=== PATIENT | female | born 1985 | race Caucasian/White ===

== ENCOUNTER 2018-05-13 06:48 | Day surgery (SDC) | payer MEDICAID ==
[~2018-05-13 06:48] MED LIST: Lactated Ringers 1,000 ML IV SCH; Lidocaine 1%/Sod Bicarbonate in NS 8.4% 1 ML Syringe IDERM PRN; Sodium Chloride 0.9% 10 ML Syringe FLUSH PRN
[2018-05-13] MEDS ORDERED: Bupivacaine 0.5% 30 ML SDV ONE (07:15)
--- NOTE | 2018-05-13 07:15 | PCM.PREANE ---
Preanesthetic Assessment - Anesthesia/Transfusion/Family Hx Anesthesia History: Prior Anesthesia Without Reaction Family History of Anesthesia Reaction: No Transfusion History: No Prior Transfusion(s) - Review of Systems General: No Symptoms Pulmonary: No Symptoms Cardiovascular: No Symptoms Gastrointestinal: Abdominal Pain (5) Neurological: No Symptoms Other: Reports: None - Physical Assessment NPO Status Date: 05/12/18 NPO Status Time: 23:10 Pulse: 65 O2 Sat by Pulse Oximetry: 98 Respiratory Rate: 16 Blood Pressure: 122/80 Temperature: 36.3 C Vital Signs: Last Vital Signs Temp 36.3 C 05/13/18 06:55 Pulse 65 05/13/18 06:55 Resp 16 05/13/18 06:55 BP 122/80 05/13/18 06:55 Pulse Ox 98 05/13/18 06:55 Height: 1.7 m Weight: 78.018 kg ASA Class: 2 Mental Status: Alert & Oriented x3 Airway Class: Mallampati = 1 Dentition: Reports: Normal Dentition, Broken Tooth/Teeth (front bottom) Thyro-Mental Finger Breadths: 3 Mouth Opening Finger Breadths: 3 ROM/Head Extension: Full Lungs: Clear to Auscultation, Normal Respiratory Effort Cardiovascular: Regular Rate, Regular Rhythm - Lab Values: Laboratory Last Values Urine HCG, Qual Negative (NEGATIVE) 05/13/18 06:55 - Allergies Allergies/Adverse Reactions: Allergies Allergy/AdvReac Type Severity Reaction Status Date / Time carrot Allergy Anaphylactic Verified 05/12/18 14:24 Shock docusate [From Colace] Allergy Hives Verified 05/12/18 14:24 metronidazole [From Flagyl] Allergy Airway Verified 05/12/18 14:24 Tightness walnut Allergy Anaphylactic Verified 05/12/18 14:24 Shock - Anesthesia Plan Pre-Op Medication Ordered: None - Acknowledgements Anesthesia Type Planned: General Anesthesia Pt an Appropriate Candidate for the Planned Anesthesia: Yes Alternatives and Risks of Anesthesia Discussed w Pt/Guardian: Yes Pt/Guardian Understands and Agrees with Anesthesia Plan: Yes PreAnesthesia Questionnaire HEENT History: Reports: Other (See Below) Other HEENT History: wears dentures Cardiovascular History: Reports: None Respiratory History: Reports: None Gastrointestinal History: Reports: Other (See Below) Other Gastrointestinal History: nausea Genitourinary History: Reports: Renal Calculus, Other (See Below) Other Genitourinary History: RLQ pain, Left oophorectomy, ovarian cyst, uterine fibroid, pelvic pain, dyspareunia RISK TECH History: Reports: None Musculoskeletal History: Reports: Other (See Below) Other Musculoskeletal History: foot pain, swelling Neurological History: Reports: None Psychiatric History: Reports: None Endocrine/Metabolic History: Reports: None Hematologic History: Reports: None Immunologic History: Reports: None Oncologic (Cancer) History: Reports: None Dermatologic History: Reports: None - Past Surgical History Head Surgeries/Procedures: Reports: None HEENT Surgical History: Reports: Oral Surgery, Tonsillectomy Cardiovascular Surgical History: Reports: None Respiratory Surgical History: Reports: None GI Surgical History: Reports: Hernia Repair/Other Female Surgical History: Reports: None Male Surgical History: Reports: None Endocrine Surgical History: Reports: None Neurological Surgical History: Reports: None Musculoskeletal Surgical History: Reports: None Oncologic Surgical History: Reports: None Dermatological Surgical History: Reports: None - SUBSTANCE USE Smoking Status *Q: Former Smoker Tobacco Use Within Last Twelve Months: No Second Hand Smoke Exposure: No Days Per Week of Alcohol Use: 1 Number of Drinks Per Day: 0 Total Drinks Per Week: 0 Recreational Drug Use History: No - HOME MEDS Home Medications: Home Meds Acetaminophen/HYDROcodone [[place] 325-5 MG] 1 tab PO Q4H PRN 05/12/18 [History] Dexlansoprazole [Dexilant] 60 mg PO Q48H 05/12/18 [History] Ibuprofen 800 mg PO TID PRN 05/12/18 [History] oxyCODONE 5 mg PO DAILY PRN 05/12/18 [History] - CURRENT (IN HOUSE) MEDS Current Meds: Current Medications Lactated Ringer's (Ringers, Lactated) 1,000 mls @ 125 mls/hr IV ASDIRECTED NIKOLAS Stop: 05/13/18 23:00 Lidocaine/Sodium Bicarbonate (Buffered Lidocaine 1% In Ns 8.4%) 0.25 ml IDERM ONETIME PRN PRN Reason: Prior to IV Start Stop: 05/13/18 18:00 Sodium Chloride (Saline Flush) 10 ml FLUSH ASDIRECTED PRN PRN Reason: Keep Vein Open Stop: 05/13/18 18:00
[2018-05-13] MEDS ORDERED: Rocuronium 50 MG/5 ML Vial ONE (07:25)
[2018-05-13] MEDS ORDERED: Ondansetron 4 MG/2 ML SDV ONE (07:25)
[2018-05-13] MEDS ORDERED: Propofol 200 MG/20 ML SDV ONE (07:26)
[2018-05-13] MEDS ORDERED: Midazolam 1 MG/ML 2 ML SDV ONE (07:26)
[2018-05-13] MEDS ORDERED: Lidocaine 1% 4 ML ONE (07:26)
[2018-05-13] MEDS ORDERED: ceFAZolin 1 GM Vial ONE (07:26)
[2018-05-13] MEDS ORDERED: fentaNYL 250 MCG/5 ML SDV ONE (07:26)
[2018-05-13] MEDS ORDERED: HYDROmorphone 0.5 MG/0.5 ML Syringe ONE ×2 (08:05)
[2018-05-13] MEDS ORDERED: Acetaminophen/oxyCODONE 325-5 MG Tab PO PRN (08:26)
[2018-05-13] MEDS ORDERED: Ondansetron 4 MG/2 ML SDV IVPUSH PRN (08:26)
[2018-05-13] MEDS ORDERED: Ketorolac 30 MG/ML SDV IVPUSH SCH (08:30)
--- NOTE | 2018-05-13 08:34 | PCM.OPNOTE ---
- General Post-Op/Procedure Note Date of Surgery/Procedure: 05/13/18 Operative Procedure(s): Laparoscopy, lysis of pelvic adhesions, drainage of right ovarian cyst Findings: Patient had pelvic adhesions in the anterior uterine/bladder area right side greater than left. Right ovarian cyst approximately 2 cm in diameter. A 99 corpus luteum cyst in appearance. 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 The right fallopian tube and left fallopian tube were surgically absent. The left ovary was surgically absent. Posterior cul-de-sac clear of lesions. Uterosacral ligaments without lesions. The appendix was flaccid and noninflamed. Right ovary appeared functional, normal size and appearance. She has 1 dilated vessel area of the right infundibulopelvic ligament possibly consistent with mild pelvic congestion syndrome findings. Pre Op Diagnosis: 1. Pelvic pain. 2. Right ovarian cyst Post-Op Diagnosis: Same with pelvic adhesions Anesthesia Technique: General ET Tube Other Anesthesia Type: Marcaine 0.5% 8 CC local Primary Surgeon: Costa Morris Secondary Surgeon: Arnol Pardo Anesthesia Provider: Albaro Chawla Automobile Body Repairer Helper: Nayla Small Automobile Body Repairer Helper: Smitha Lepe Role of Automobile Body Repairer Helper: Assistance, retraction, patient safety and quality of care. Fluid Replacement, Intraop: 1,100 Output, Urine Amount: 15 EBL in mLs: 5 Drain/Tube Comments:: Indwelling bladder catheter during surgery only Complications: None Condition: Good Free Text/Narrative:: Surgery duration: 22 minutes Procedure: The patient was taken to the operating room and placed in supine position on the operative table. She had sequential compression stockings in place for DVT prophylaxis and had been given 2 g of Ancef IV for infection prophylaxis. She was administered general endotracheal anesthesia. After administration of anesthesia the patient was placed in dorsal lithotomy position and prepped and draped in usual fashion. An indwelling bladder catheter was placed as was a uterine manipulator. It should be noted the uterus sounded to 8 cm and was noted to be anterior and mid position. Infraumbilical incision site and suprapubic site were then infiltrated with approximately 3-4 mL of Marcaine 0.5%. 5 mm incisions were made in these areas. Varies needle was placed in the infraumbilical incision site and pneumoperitoneum was established was in 2 L of CO2. The laparoscopic sleeve was then placed as was the scope. Under direct visualization the suprapubic site was developed with a 5 mm port. Pelvis was evaluated findings as above. Anatomy otherwise was unremarkable. The right ovarian cyst was opened and allowed to drain. Clear fluid resulted. Findings consistent with a corpus luteum cyst. Adhesions in the anterior cul-de- sac were removed as blunt dissection. The lower sleeve having been removed under direct visualization. The upper port was removed and the incisions were closed with single subcuticular interrupted suture of 3-0 Monocryl. The incisions were further approximated with Dermabond skin glue. The uterine manipulator and Call catheter removed. Patient was returned to the supine position and awakened from general endotracheal anesthesia. She left the operating room in good condition.
[2018-05-13] MEDS ORDERED: fentaNYL 100 MCG/2 ML SDV ONE (08:45)
[2018-05-13] MEDS ORDERED: fentaNYL 100 MCG/2 ML SDV IVPUSH PRN (08:55)
[2018-05-13] MEDS ORDERED: HYDROmorphone 0.5 MG/0.5 ML Syringe IVPUSH PRN (08:55)
--- NOTE | 2018-05-13 08:59 | PCM.POSTAN ---
POST ANESTHESIA ASSESSMENT - MENTAL STATUS Mental Status: Alert, Oriented - VITAL SIGNS Pulse Rate: 70 SaO2: 99 Resp Rate: 11 Blood Pressure: 112/79 Temperature: 36.3 C - RESPIRATORY Respiratory Status: Respiratory Rate WNL, Airway Patent, O2 Saturation Stable, Supplemental Oxygen - CARDIOVASCULAR CV Status: Pulse Rate WNL, Blood Pressure Stable - GASTROINTESTINAL GI Status: No Symptoms - PAIN Pain Score: 4 - POST OP HYDRATION Hydration Status: Adequate & Stable - OBSERVATIONS Free Text/Narrative:: no anesthesia complications noted
[2018-05-13] MEDS ORDERED: Haloperidol Lactate 5 MG/ML SDV IVPUSH PRN (09:42)
[2018-05-13] MEDS ORDERED: Haloperidol Lactate 5 MG/ML SDV ONE (09:47)
--- NOTE | 2018-05-13 10:06 | PCM48HPAN ---
Post Anesthesia Note - EVALUATION WITHIN 48HRS OF ANESTHETIC Vital Signs in Normal Range: Yes Patient Participated in Evaluation: Yes Respiratory Function Stable: Yes Airway Patent: Yes Cardiovascular Function Stable: Yes Hydration Status Stable: Yes Pain Control Satisfactory: Yes Nausea and Vomiting Control Satisfactory: Yes (meds given) Mental Status Recovered: Yes - COMMENTS/OBSERVATIONS Free Text/Narrative:: no anesthesia complications noted
[2018-05-13] MEDS ORDERED: Scopolamine 1.5 MG Transdermal Patch TOP SCH (11:23)
== END 2018-05-13 12:25 | disposition home or self-care (01) ==
LOC: JD.SDS 06:48
PROVIDERS: ATTEND Obstetrics & Gynecology
DX: N83.11 Corpus luteum cyst of right ovary (principal); F17.210 Nicotine dependence, cigarettes, uncomplicated; Z79.899 Other long term (current) drug therapy; Z88.1 Allergy status to other antibiotic agents; Z88.8 Allergy status to other drugs, medicaments and biological substances; Z91.018 Allergy to other foods
CPT/HCPCS: 49322; 81025; A9270; J0690; J1170; J1630; J2250; J2405; J2704; J3010; J3490; J7120; 00840; J2001

== ENCOUNTER 2019-07-26 11:19 | Emergency (ER) | payer SELFPAY ==
[2019-07-26] MEDS ORDERED: Ondansetron 4 MG/2 ML SDV IVPUSH ONE (11:55)
[2019-07-26] MEDS ORDERED: Sodium Chloride 0.9% 10 ML Syringe FLUSH PRN (11:55)
[2019-07-26] MEDS ORDERED: Ketorolac 30 MG/ML SDV IVPUSH ONE (11:56)
[2019-07-26] MEDS ORDERED: HYDROmorphone 1 MG/ML Syringe IVPUSH ONE (11:56)
[2019-07-26] MEDS ORDERED: Sodium Chloride 0.9% 1,000 ML IV SCH (12:00)
--- NOTE | 2019-07-26 13:18 | CT ---
CT abdomen and pelvis Technique: Multiple axial sections were obtained from above the dome of the diaphragm inferiorly through the pubic symphysis. Intravenous contrast and oral contrast not given. Study performed as a ureteral stone protocol. Findings: Left ureter is dilated as well as the left renal pelvis. These findings are caused by an obstructing distal left ureteral stone measuring 3.6 mm. This occurs slightly proximal to the UVJ. No other abnormal ureteral calcifications are seen. Nonobstructing calculus is noted within the inferior left kidney measuring 4.4 mm. No other abnormal renal calcifications are seen. Other findings: Visualized lung bases show nothing acute. Liver contains no focal parenchymal abnormality. Spleen appears within normal limits. Adrenal glands show no nodule. Pancreas shows no discrete abnormality. Aorta shows no aneurysm. No retroperitoneal adenopathy or mesenteric abnormalities are seen. Appendix is felt to be visualized and is normal. No pelvic mass or adenopathy is seen. No free fluid or inflammatory change is seen. Bone window settings were reviewed which appear within normal limits for the patient's age. Impression: 1. Left-sided hydronephrosis caused by a 3.6 mm distal left ureteral stone which is located slightly proximal to the UVJ. 2. 4.4 mm nonobstructing calculus within the inferior left kidney. 3. No additional abnormality identified on noncontrast CT study of the abdomen and pelvis performed as a ureteral stone protocol. Diagnostic code #3 This report was dictated in [place] Standard Time
--- NOTE | 2019-07-26 13:41 | EDM.PDOC ---
ED HPI GENERAL MEDICAL PROBLEM - General Chief Complaint: Flank Pain Stated Complaint: L FLANK PAIN, EMMISIS INCLUDING BLOOD Time Seen by Provider: 07/26/19 11:38 Source of Information: Reports: Patient History Limitations: Reports: No Limitations - History of Present Illness INITIAL COMMENTS - FREE TEXT/NARRATIVE: The patient presents with left flank and abdominal pain. This started at 9am when she woke up. She also has nausea and vomiting. She has a history of a kidney stone in her kidney but she has never passed it. She has no fever but she does have chills. She has no chest pain or shortness of breath. She has no dysuria or hematuria. Onset: Sudden Duration: Hour(s): Location: Reports: Abdomen, Back Quality: Reports: Sharp Severity: Severe Improves with: Reports: None Worsens with: Reports: None Associated Symptoms: Reports: Nausea/Vomiting. Denies: Chest Pain, Cough, Fever /Chills, Headaches, Shortness of Breath Left Flank Pain Score (Numeric/FACES): 9 - Related Data Allergies Allergy/AdvReac Type Severity Reaction Status Date / Time carrot Allergy Anaphylactic Verified 07/26/19 11:39 Shock docusate [From Colace] Allergy Hives Verified 07/26/19 11:39 metronidazole [From Flagyl] Allergy Airway Verified 07/26/19 11:39 Tightness walnut Allergy Anaphylactic Verified 07/26/19 11:39 Shock Home Meds: Home Meds Hydrocodone/Acetaminophen [Hydrocodon-Acetaminophen 5-325] 1 - 2 each PO Q6HR PRN #20 tablet 07/26/19 [Rx] Ondansetron [Zofran ODT] 4 mg PO Q6H PRN #20 tab.dis 07/26/19 [Rx] Tamsulosin HCl [Flomax] 0.4 mg PO DAILY #7 cap.er.24h 07/26/19 [Rx] Past Medical History HEENT History: Reports: Other (See Below) Other HEENT History: wears dentures Cardiovascular History: Reports: None Respiratory History: Reports: None Gastrointestinal History: Reports: Other (See Below) Other Gastrointestinal History: nausea Genitourinary History: Reports: Renal Calculus, Other (See Below) Other Genitourinary History: RLQ pain, Left oophorectomy, ovarian cyst, uterine fibroid, pelvic pain, dyspareunia BLENDER History: Reports: None Musculoskeletal History: Reports: Other (See Below) Other Musculoskeletal History: foot pain, swelling Neurological History: Reports: None Psychiatric History: Reports: None Endocrine/Metabolic History: Reports: None Hematologic History: Reports: None Immunologic History: Reports: None Oncologic (Cancer) History: Reports: None Dermatologic History: Reports: None - Past Surgical History Head Surgeries/Procedures: Reports: None HEENT Surgical History: Reports: Oral Surgery, Tonsillectomy Cardiovascular Surgical History: Reports: None Respiratory Surgical History: Reports: None GI Surgical History: Reports: Cholecystectomy, Hernia Repair/Other Female Surgical History: Reports: None Endocrine Surgical History: Reports: None Neurological Surgical History: Reports: None Musculoskeletal Surgical History: Reports: None Oncologic Surgical History: Reports: None Dermatological Surgical History: Reports: None Social & Family History - Tobacco Use Smoking Status *Q: Never Smoker - Caffeine Use Caffeine Use: Reports: Coffee ED ROS GENERAL - Review of Systems Review Of Systems: See Below Constitutional: Reports: No Symptoms HEENT: Reports: No Symptoms Respiratory: Reports: No Symptoms Cardiovascular: Reports: No Symptoms Endocrine: Reports: No Symptoms GI/Abdominal: Reports: Abdominal Pain, Nausea, Vomiting : Reports: Flank Pain (Left) Musculoskeletal: Reports: No Symptoms ED EXAM, GI/ABD - Physical Exam Exam: See Below Exam Limited By: No Limitations General Appearance: Alert, No Apparent Distress Ears: Normal External Exam Nose: Normal Inspection Head: Atraumatic, Normocephalic Neck: Normal Inspection Respiratory/Chest: No Respiratory Distress, Lungs Clear, Normal Breath Sounds Cardiovascular: Regular Rate, Rhythm, No Edema, No Murmur GI/Abdominal Exam: Soft, No Organomegaly, No Mass, Tender (Moderate tenderness to the left abdomen and flank) Back Exam: CVA Tenderness (L) Extremities: Normal Inspection Course - Vital Signs Last Recorded V/S: Last Vital Signs Temp 97.5 F 07/26/19 11:35 Pulse 60 07/26/19 11:35 Resp 20 07/26/19 11:35 BP 113/65 07/26/19 11:35 Pulse Ox 100 07/26/19 11:35 - Orders/Labs/Meds Orders: Active Orders 24 hr Category Date Time Status Peripheral IV Care [RC] . DIRECTED Care 07/26/19 11:56 Active HYDROmorphone [Dilaudid] Med 07/26/19 13:50 Once 0.5 mg IVPUSH ONETIME ONE Sodium Chloride 0.9% [Normal Saline] 1,000 ml Med 07/26/19 12:00 Active IV ASDIRECTED Sodium Chloride 0.9% [Saline Flush] Med 07/26/19 11:55 Active 10 ml FLUSH ASDIRECTED PRN ED Antiemetic Medication Reflex [OM.PC] Stat Oth 07/26/19 11:55 Ordered Peripheral IV Insertion Adult [OM.PC] Stat Ot 07/26/19 11:55 Ordered Medication Orders Sodium Chloride (Normal Saline) 1,000 mls @ 125 mls/hr IV ASDIRECTED NIKOLAS Last Admin: 07/26/19 12:19 Dose: 125 mls/hr Sodium Chloride (Saline Flush) 10 ml FLUSH ASDIRECTED PRN PRN Reason: Keep Vein Open Last Admin: 07/26/19 12:21 Dose: 10 ml Labs: Laboratory Tests 07/26/19 07/26/19 07/26/19 Range/Units 11:45 12:25 12:25 WBC 13.73 H (3.98-10.04) K/mm3 RBC 5.45 H (3.98-5.22) M/mm3 Hgb 13.3 (11.2-15.7) gm/dl Hct 41.5 (34.1-44.9) % MCV 76.1 L (79.4-94.8) fl MCH 24.4 L (25.6-32.2) pg MCHC 32.0 L (32.2-35.5) g/dl RDW Std Deviation 44.0 (36.4-46.3) fL Plt Count 292 (182-369) K/mm3 MPV 11.6 (9.4-12.3) fl Neut % (Auto) 86.3 H (34.0-71.1) % Lymph % (Auto) 7.9 L (19.3-51.7) % [place] % (Auto) 5.4 (4.7-12.5) % Eos % (Auto) 0.1 L (0.7-5.8) Baso % (Auto) 0.1 (0.1-1.2) % Neut # (Auto) 11.84 H (1.56-6.13) K/mm3 Lymph # (Auto) 1.08 L (1.18-3.74) K/mm3 [place] # (Auto) 0.74 H (0.24-0.36) K/mm3 Eos # (Auto) 0.02 L (0.04-0.36) K/mm3 Baso # (Auto) 0.02 (0.01-0.08) K/mm3 Sodium 141 (136-145) mEq/L Potassium 3.9 (3.5-5.1) mEq/L Chloride 105 (98-107) mEq/L Carbon Dioxide 25 (21-32) mEq/L Anion Gap 14.9 (5-15) BUN 11 (7-18) mg/dL Creatinine 0.9 (0.55-1.02) mg/dL Est Cr Clr Drug Dosing 87.27 mL/min Estimated GFR (MDRD) > 60 (>60) mL/min BUN/Creatinine Ratio 12.2 L (14-18) Glucose 122 H (74-106) mg/dL Calcium 9.3 (8.5-10.1) mg/dL Total Bilirubin 0.5 (0.2-1.0) mg/dL AST 23 (15-37) U/L ALT 40 (14-59) U/L Alkaline Phosphatase 98 (46-116) U/L Total Protein 8.5 H (6.4-8.2) g/dl Albumin 4.2 (3.4-5.0) g/dl Globulin 4.3 gm/dL Albumin/Globulin Ratio 1.0 (1-2) Lipase 117 (73-393) U/L HCG, Qual (NEGATIVE) Urine Color Yellow (Yellow) Urine Appearance Slt cloudy H (Clear) Urine pH 5.5 (5.0-8.0) Ur Specific [place] > or = 1.030 (1.005-1.030) Urine Protein 1+ H (Negative) Urine Glucose (UA) Negative (Negative) Urine Ketones 1+ H (Negative) Urine Occult Blood 3+ H (Negative) Urine Nitrite Negative (Negative) Urine Bilirubin 1+ H (Negative) Urine Urobilinogen 0.2 (0.2-1.0) Ur Leukocyte Esterase Negative (Negative) Urine RBC 50-75 H (0-5) /hpf Urine WBC 0-5 (0-5) /hpf Ur Squamous Epith Cells 10-20 H (0-5) /hpf Urine Bacteria Few (FEW) /hpf Urine Mucus Moderate H (FEW) /hpf 07/26/19 Range/Units 12:25 WBC (3.98-10.04) K/mm3 RBC (3.98-5.22) M/mm3 Hgb (11.2-15.7) gm/dl Hct (34.1-44.9) % MCV (79.4-94.8) fl MCH (25.6-32.2) pg MCHC (32.2-35.5) g/dl RDW Std Deviation (36.4-46.3) fL Plt Count (182-369) K/mm3 MPV (9.4-12.3) fl Neut % (Auto) (34.0-71.1) % Lymph % (Auto) (19.3-51.7) % [place] % (Auto) (4.7-12.5) % Eos % (Auto) (0.7-5.8) Baso % (Auto) (0.1-1.2) % Neut # (Auto) (1.56-6.13) K/mm3 Lymph # (Auto) (1.18-3.74) K/mm3 [place] # (Auto) (0.24-0.36) K/mm3 Eos # (Auto) (0.04-0.36) K/mm3 Baso # (Auto) (0.01-0.08) K/mm3 Sodium (136-145) mEq/L Potassium (3.5-5.1) mEq/L Chloride (98-107) mEq/L Carbon Dioxide (21-32) mEq/L Anion Gap (5-15) BUN (7-18) mg/dL Creatinine (0.55-1.02) mg/dL Est Cr Clr Drug Dosing mL/min Estimated GFR (MDRD) (>60) mL/min BUN/Creatinine Ratio (14-18) Glucose (74-106) mg/dL Calcium (8.5-10.1) mg/dL Total Bilirubin (0.2-1.0) mg/dL AST (15-37) U/L ALT (14-59) U/L Alkaline Phosphatase (46-116) U/L Total Protein (6.4-8.2) g/dl Albumin (3.4-5.0) g/dl Globulin gm/dL Albumin/Globulin Ratio (1-2) Lipase (73-393) U/L HCG, Qual Negative (NEGATIVE) Urine Color (Yellow) Urine Appearance (Clear) Urine pH (5.0-8.0) Ur Specific Maple (1.005-1.030) Urine Protein (Negative) Urine Glucose (UA) (Negative) Urine Ketones (Negative) Urine Occult Blood (Negative) Urine Nitrite (Negative) Urine Bilirubin (Negative) Urine Urobilinogen (0.2-1.0) Ur Leukocyte Esterase (Negative) Urine RBC (0-5) /hpf Urine WBC (0-5) /hpf Ur Squamous Epith Cells (0-5) /hpf Urine Bacteria (FEW) /hpf Urine Mucus (FEW) /hpf Meds: Medications Generic Name Dose Route Start Last Admin Trade Name Freq PRN Reason Stop Dose Admin Sodium Chloride 1,000 mls @ 125 mls/hr 07/26/19 12:00 07/26/19 12:19 Normal Saline IV 125 mls/hr ASDIRECTED NIKOLAS Administration Sodium Chloride 10 ml 07/26/19 11:55 07/26/19 12:21 Saline Flush FLUSH 10 ml ASDIRECTED PRN Administration Keep Vein Open Discontinued Medications Generic Name Dose Route Start Last Admin Trade Name Freq PRN Reason Stop Dose Admin Hydromorphone HCl 1 mg 07/26/19 11:56 07/26/19 12:20 Dilaudid IVPUSH 07/26/19 11:57 1 mg ONETIME ONE Administration Ketorolac Tromethamine 30 mg 07/26/19 11:56 07/26/19 12:19 Toradol IVPUSH 07/26/19 11:57 30 mg ONETIME ONE Administration Ondansetron HCl 4 mg 07/26/19 11:55 07/26/19 12:20 Zofran IVPUSH 07/26/19 11:56 4 mg ONETIME ONE Administration - Re-Assessments/Exams Free Text/Narrative Re-Assessment/Exam: 07/26/19 13:40 I ordered an IV NS at 125mL/her, zofran 4mg IV, toradol 30mg IV, dilaudid 1mg IV , labs, UA and a CT of her abdomen and pelvis without contrast to look for a kidney stone. 07/26/19 13:42 Her WBC is elevated at 13.73. Her glucose is elevated at 122. Her lipase is normal. Her HCG is negative. Her UA shows blood but no UTI. Her CT shows left -sided hydronephrosis caused by a 3.6mm distal left ureteral stone which is located slightly proximal to the UVJ. 4.4 mm nonobstructing calculus within the inferior left kidney. No additional abnormality identified on noncontrast CT study of the abdomen and pelvis performed as a ureteral stone protocol. 07/26/19 13:50 She is having a little more pain. I will give her more dilaudid and discharge her. Departure - Departure Time of Disposition: 13:55 Disposition: Home, Self-Care 01 Condition: Good Clinical Impression: Ureteric colic, Kidney stone on left side, Ureteral calculus, left - Discharge Information *PRESCRIPTION DRUG MONITORING PROGRAM REVIEWED*: No *COPY OF PRESCRIPTION DRUG MONITORING REPORT IN PATIENT YEHUDA: No Prescriptions: Hydrocodone/Acetaminophen [Hydrocodon-Acetaminophen 5-325] 1 - 2 each PO Q6HR PRN #20 tablet PRN Reason: Pain Ondansetron [Zofran ODT] 4 mg PO Q6H PRN #20 tab.dis PRN Reason: Nausea\vomiting Tamsulosin HCl [Flomax] 0.4 mg PO DAILY #7 cap.er.24h Referrals: Sara Mar PA-C [Primary Care Provider] - 1 Week Andres Roche MD [Ordering Only Provider] - 1 Week Forms: ED Department Discharge Additional Instructions: Drink plenty of fluids. Take the flomax daily. Take motrin or tylenol for pain. If that does not help, try the hydrocodone. Take the zofran every 6 hours as needed for nausea and vomiting. Please return if you are worse. Follow up with Dr Roche a urologist in [place] if you have not passed it in over a week. - My Orders Last 24 Hours: My Active Orders 07/26/19 11:55 Sodium Chloride 0.9% [Saline Flush] 10 ml FLUSH ASDIRECTED PRN ED Antiemetic Medication Reflex [OM.PC] Stat Peripheral IV Insertion Adult [OM.PC] Stat 07/26/19 11:56 Peripheral IV Care [RC] . DIRECTED 07/26/19 12:00 Sodium Chloride 0.9% [Normal Saline] 1,000 ml IV ASDIRECTED 07/26/19 13:50 HYDROmorphone [Dilaudid] 0.5 mg IVPUSH ONETIME ONE - Assessment/Plan Last 24 Hours: My Active Orders 07/26/19 11:55 Sodium Chloride 0.9% [Saline Flush] 10 ml FLUSH ASDIRECTED PRN ED Antiemetic Medication Reflex [OM.PC] Stat Peripheral IV Insertion Adult [OM.PC] Stat 07/26/19 11:56 Peripheral IV Care [RC] . DIRECTED 07/26/19 12:00 Sodium Chloride 0.9% [Normal Saline] 1,000 ml IV ASDIRECTED 07/26/19 13:50 HYDROmorphone [Dilaudid] 0.5 mg IVPUSH ONETIME ONE
[2019-07-26] MEDS ORDERED: HYDROmorphone 0.5 MG/0.5 ML Syringe IVPUSH ONE (13:50)
== END 2019-07-26 14:15 | disposition home or self-care (01) ==
LOC: JD.ED 11:19 → MERGE 11:19 → JD.ED 14:15
DX: N13.2 Hydronephrosis with renal and ureteral calculous obstruction (principal); Z91.018 Allergy to other foods; Z88.1 Allergy status to other antibiotic agents; Z88.8 Allergy status to other drugs, medicaments and biological substances
CPT/HCPCS: 36415; 74176; 80053; 81001; 83690; 84703; 85025; 96361; 96374; 96375; 96376; 99284; J1170; J1885; J2405; J7030

== ENCOUNTER 2020-02-04 17:45 | Emergency (ER) | payer BC ==
[2020-02-04] MEDS ORDERED: Sodium Chloride 0.9% 10 ML Syringe FLUSH PRN (18:01)
[2020-02-04] MEDS ORDERED: Ondansetron 4 MG/2 ML SDV IVPUSH ONE (18:12)
[2020-02-04] MEDS ORDERED: HYDROmorphone 0.5 MG/0.5 ML Syringe IVPUSH ONE ×2 (18:12→19:28)
[2020-02-04] MEDS ORDERED: Sodium Chloride 0.9% 1,000 ML IV ONE (18:13)
--- NOTE | 2020-02-04 18:19 | EDM.PDOC ---
ED HPI GENERAL MEDICAL PROBLEM - General Chief Complaint: Flank Pain Stated Complaint: R SIDE ABD PAIN Time Seen by Provider: 02/04/20 18:00 Source of Information: Reports: Patient, RN Notes Reviewed History Limitations: Reports: No Limitations - History of Present Illness INITIAL COMMENTS - FREE TEXT/NARRATIVE: Patient is a 34-year-old female who presents to the ED for the evaluation of sudden onset right flank/right lower abdomen pain. Patient notes around 1-1/2 hours ago she developed this pain. She states she is nauseated, and that the pain is very sharp stabbing pain, there all the time but definitely worsens with any sort of movement, she states she just cannot really find a good position to lay in. The patient notes that she does have a history of kidney stones, her last stone was roughly 6 months ago. Patient states that she did take half of a [place] tablet, so this would be 2.5 mg for pain management. Patient denies any other sick-like symptoms, fever/chills, vomiting/diarrhea, cough/shortness of breath. She further denies any dysuria, frequency or urgency feelings. Patient denies any chance of and states that she has had both fallopian tubes removed. Right Flank Pain Score (Numeric/FACES): 9 - Related Data Allergies Allergy/AdvReac Type Severity Reaction Status Date / Time docusate [From Colace] Allergy Severe Hives Verified 02/04/20 18:02 metronidazole [From Flagyl] Allergy Severe Airway Verified 02/04/20 18:02 Tightness carrot Allergy Anaphylactic Verified 02/04/20 18:02 Shock Influenza Virus Vaccines Allergy Other Verified 02/04/20 18:02 walnut Allergy Anaphylactic Verified 02/04/20 18:02 Shock Home Meds: Home Meds Acetaminophen/HYDROcodone [[place] 325-5 MG] 1 tab PO Q6H PRN #6 tablet 04/26/19 [Rx] Pantoprazole [ProTONIX] 20 mg PO BID 06/13/19 [History] oxyCODONE 5 mg PO Q4H PRN #20 tab 06/24/19 [Rx] Hydrocodone/Acetaminophen [Hydrocodone-Acetamin 5-325 mg] 1 - 2 each PO Q6HR PRN #20 tablet 07/26/19 [Rx] Ondansetron [Zofran ODT] 4 mg PO Q6H PRN #20 tab.dis 07/26/19 [Rx] Tamsulosin HCl [Flomax] 0.4 mg PO DAILY #7 cap.er.24h 07/26/19 [Rx] Past Medical History HEENT History: Reports: Impaired Vision, Other (See Below) Other HEENT History: Upper dentures Gastrointestinal History: Reports: GERD, Helicobacter Pylori, Other (See Below) Other Gastrointestinal History: Diarrhea Genitourinary History: Reports: Other (See Below), Renal Calculus, UTI, Recurrent Other Genitourinary History: Past UtI's and Kidney stones [facility] History: Reports: Ectopic , Other [facility] History: Gardenella vaginitis, ovarian cyst Musculoskeletal History: Reports: Other (See Below) Other Musculoskeletal History: Tendinitis, left ankle sprain Neurological History: Reports: Headaches, Chronic - Infectious Disease History Infectious Disease History: Reports: Other (See Below) Other Infectious Disease History: Cold sores - Past Surgical History HEENT Surgical History: Reports: Adenoidectomy, Oral Surgery, Tonsillectomy GI Surgical History: Reports: Cholecystectomy, Hernia Repair/Other Female Surgical History: Reports: Tubal Ligation Social & Family History - Tobacco Use Smoking Status *Q: Current Every Day Smoker Years of Tobacco use: 10 Packs/Tins Daily: 0.5 - Caffeine Use Caffeine Use: Reports: Coffee - Recreational Drug Use Recreational Drug Use: No ED ROS GENERAL - Review of Systems Review Of Systems: Comprehensive ROS is negative, except as noted in HPI. ED EXAM, RENAL/ - Physical Exam Exam: See Below Exam Limited By: No Limitations General Appearance: Alert, WD/WN, No Apparent Distress (pt does appear to be in pain) Eye Exam: Bilateral Eye: EOMI, Normal Inspection, PERRL Throat/Mouth: Normal Inspection, Normal Lips, Normal Teeth, Normal Gums, Normal Oropharynx, Normal Voice, No Airway Compromise Head: Atraumatic, Normocephalic Neck: Normal Inspection Respiratory/Chest: No Respiratory Distress, Lungs Clear, Normal Breath Sounds, No Accessory Muscle Use, Chest Non-Tender Cardiovascular: Normal Peripheral Pulses, Regular Rate, Rhythm, No Murmur GI/Abdominal: Normal Bowel Sounds, Soft, No Distention, No Mass, Tender (RLQ, McBurney point is positive) Extremities: Normal Inspection, Normal Capillary Refill Neurological: Alert, Oriented, Normal Cognition, No Motor/Sensory Deficits Psychiatric: Normal Affect, Normal Mood Skin Exam: Warm, Dry, Intact, Normal Color, No Rash Course - Vital Signs Last Recorded V/S: Last Vital Signs Temp 98.1 F 02/04/20 17:59 Pulse 94 02/04/20 17:59 Resp 12 02/04/20 17:59 BP 130/92 H 02/04/20 17:59 Pulse Ox 100 02/04/20 17:59 - Orders/Labs/Meds Orders: Active Orders 24 hr Category Date Time Status Peripheral IV Care [RC] . DIRECTED Care 02/04/20 18:01 Ordered Sodium Chloride 0.9% [Saline Flush] Med 02/04/20 18:01 Ordered 10 ml FLUSH ASDIRECTED PRN Peripheral IV Insertion Adult [OM.PC] Stat Oth 02/04/20 18:01 Ordered Medication Orders Sodium Chloride (Saline Flush) 10 ml FLUSH ASDIRECTED PRN PRN Reason: Keep Vein Open Last Admin: 02/04/20 18:20 Dose: 10 ml Documented by: DENISE Labs: Laboratory Tests 02/04/20 02/04/20 02/04/20 Range/Units 17:55 17:55 18:14 WBC 12.00 H (3.98-10.04) K/mm3 RBC 5.87 H (3.98-5.22) M/mm3 Hgb 15.5 D (11.2-15.7) gm/dl Hct 46.0 H (34.1-44.9) % MCV 78.4 L (79.4-94.8) fl MCH 26.4 (25.6-32.2) pg MCHC 33.7 (32.2-35.5) g/dl RDW Std Deviation 43.7 (36.4-46.3) fL Plt Count 331 (182-369) K/mm3 MPV 11.6 (9.4-12.3) fl Neutrophils % (Manual) 71 H (40-60) % Band Neutrophils % 0 (0-10) % Lymphocytes % (Manual) 24 (20-40) % Atypical Lymphs % 0 % Monocytes % (Manual) 4 (2-10) % Eosinophils % (Manual) 0 L (0.7-5.8) % Basophils % (Manual) 1 (0.1-1.2) Platelet Estimate Adequate RBC Morph Comment Normal Sodium 141 (136-145) mEq/L Potassium 3.5 (3.5-5.1) mEq/L Chloride 104 (98-107) mEq/L Carbon Dioxide 22 (21-32) mEq/L Anion Gap 18.5 H (5-15) BUN 11 (7-18) mg/dL Creatinine 1.0 (0.55-1.02) mg/dL Est Cr Clr Drug Dosing 78.54 mL/min Estimated GFR (MDRD) > 60 (>60) mL/min BUN/Creatinine Ratio 11.0 L (14-18) Glucose 102 (74-106) mg/dL Calcium 9.9 (8.5-10.1) mg/dL Total Bilirubin 0.4 (0.2-1.0) mg/dL AST 22 (15-37) U/L ALT 48 (14-59) U/L Alkaline Phosphatase 94 (46-116) U/L Total Protein 8.7 H (6.4-8.2) g/dl Albumin 4.3 (3.4-5.0) g/dl Globulin 4.4 gm/dL Albumin/Globulin Ratio 1.0 (1-2) Urine Color Yellow (Yellow) Urine Appearance Clear (Clear) Urine pH 6.5 (5.0-8.0) Ur Specific [place] 1.020 (1.005-1.030) Urine Protein Negative (Negative) Urine Glucose (UA) Negative (Negative) Urine Ketones Negative (Negative) Urine Occult Blood Trace-lysed H (Negative) Urine Nitrite Negative (Negative) Urine Bilirubin Negative (Negative) Urine Urobilinogen 0.2 (0.2-1.0) Ur Leukocyte Esterase Negative (Negative) Urine RBC 0-5 (0-5) /hpf Urine WBC 0-5 (0-5) /hpf Ur Epithelial Cells 0-5 (0-5) /hpf Urine Bacteria Rare (FEW) /hpf Urine Mucus Few (FEW) /hpf Meds: Medications Generic Name Dose Route Start Last Admin Trade Name Freq PRN Reason Stop Dose Admin Sodium Chloride 10 ml 02/04/20 18:01 02/04/20 18:20 Saline Flush FLUSH 10 ml ASDIRECTED PRN Administration Keep Vein Open Discontinued Medications Generic Name Dose Route Start Last Admin Trade Name Freq PRN Reason Stop Dose Admin Hydromorphone HCl 0.5 mg 02/04/20 18:12 02/04/20 18:19 Dilaudid IVPUSH 02/04/20 18:13 0.5 mg ONETIME ONE Administration Hydromorphone HCl 0.5 mg 02/04/20 19:28 02/04/20 19:56 Dilaudid IVPUSH 02/04/20 19:29 0.5 mg ONETIME ONE Administration Sodium Chloride 1,000 mls @ 999 mls/hr 02/04/20 18:13 02/04/20 18:19 Normal Saline IV 02/04/20 19:13 999 mls/hr ONETIME ONE Administration Ondansetron HCl 4 mg 02/04/20 18:12 02/04/20 18:20 Zofran IVPUSH 02/04/20 18:13 4 mg ONETIME ONE Administration - Re-Assessments/Exams Free Text/Narrative Re-Assessment/Exam: 02/04/20 18:19 Patient presents to the ED for the evaluation of her sudden onset right flank/lower quadrant pain. Suspicious for kidney stone in nature; but with having RLQ pain appendicitis is not completely ruled out at this time. Patient will have an abdomen pelvis without contrast done, IV replace with some fluids, 4 mg Zofran, 0.5 mg Dilaudid, urinalysis and basic labs. 02/04/20 19:29 Patient's laboratory evaluation has returned, demonstrates a modestly elevated white count, with normal discernible left shift. Metabolic panel is impressive for a elevated anion gap of 18.5, which would suggest dehydration, urinalysis shows trace lysed red blood cells, but no sign of infection. No obvious hematuria. Patient's CT demonstrates a small nonobstructing stone within the inferior left kidney, otherwise no ureteral dilatation or ureteral stone is seen. No other acute processes are noted on the noncontrast CT. Dr. Wise did also look at the CT, and believes the right ovary is somewhat enlarged, and he did see the appendix and feels that it is within normal limits at this time, there is no periappendiceal inflammation noted. I will order transvaginal ultrasound to rule out ovarian torsion in nature, as the patient is still quite tender in her right lower quadrant. She did report little relief from the 0.5mg of Dilaudid she received initially. Patient will get a repeat dose of half milligram Dilaudid before transvaginal ultrasound will be performed. 02/04/20 20:55 Ultrasound has returned, and there is a ill-defined hypoechoic area seen possibly but not definitely due to a submucosal fibroid, this is located within the uterine body on the left side measuring 2 cm. There are nabothian cysts noted within the cervix. No free fluid was seen in the pelvis. The right ovary shows a small septated cyst which is exophytic off of the right ovary measuring 2.1 cm which is most likely incidental given the patient's age. It appears as if the patient does have a right ovarian cyst, and may be this is causing her acute pain. She will be directed to follow-up with [facility] for further management, she has pain medication at home, which I will direct her to take, and also try some ibuprofen in combination for pain management. Departure - Departure Time of Disposition: 20:58 Disposition: Home, Self-Care 01 Condition: Good Clinical Impression: RLQ abdominal pain Ovarian cyst Qualifiers: Laterality: right Qualified Code(s): N83.201 - Unspecified ovarian cyst, right side Uterine fibroid Qualifiers: Uterine leiomyoma location: submucous Qualified Code(s): D25.0 - Submucous leiomyoma of uterus - Discharge Information *PRESCRIPTION DRUG MONITORING PROGRAM REVIEWED*: No *COPY OF PRESCRIPTION DRUG MONITORING REPORT IN PATIENT YEHUDA: No Instructions: Ovarian Cyst, [id number] Referrals: PCP,None [Primary Care Provider] - Forms: ED Department Discharge, ED Return to Work/School Form Additional Instructions: You were evaluated in the ER today for your right flank/right lower quadrant pain. Your work-up in the ER demonstrated laboratory evaluation that was essentially within normal limits. Your white blood cell count was mildly elevated which is thought to be due to a stress reaction due to the pain you are having. You were mildly dehydrated and did receive IV fluids for this. You did receive adequate pain control with the medications given. Your CT demonstrated no sign of a kidney stone that would be causing pain at today's visit, your appendix was thought to be of normal size with no inflammation. There was some question about an enlarged right ovary from your CT a, so you did have a ultrasound performed to rule out ovarian torsion, and this demonstrated a possible area on the left side of your uterus that could be a fibroid and as well as a septated cyst within the right ovary, which could be causing some of your pain. As you stated before you do already have hydrocodone/acetaminophen tablets at home, please take 1/2 to 1 tablet every 6 hours as needed for pain relief. You also get quite nauseous when taking these medications, so please take your prescription for Zofran with this as well to help prevent nausea. Recommend you follow-up with [facility] on Friday for further evaluation and/or management. If your symptoms change in any way, increasing pain, fever/chills, intractable nausea/vomiting, please do not hesitate to return to the ER for reevaluation and further management. Sepsis Event Note (ED) - Evaluation Sepsis Screening Result: No Definite Risk - Focused Exam Vital Signs: Vital Signs Temp Pulse Resp BP Pulse Ox 02/04/20 17:59 98.1 F 94 12 130/92 H 100 - My Orders Last 24 Hours: My Active Orders 02/04/20 18:01 Peripheral IV Care [RC] . DIRECTED Sodium Chloride 0.9% [Saline Flush] 10 ml FLUSH ASDIRECTED PRN Peripheral IV Insertion Adult [OM.PC] Stat - Assessment/Plan Last 24 Hours: My Active Orders 02/04/20 18:01 Peripheral IV Care [RC] . DIRECTED Sodium Chloride 0.9% [Saline Flush] 10 ml FLUSH ASDIRECTED PRN Peripheral IV Insertion Adult [OM.PC] Stat
--- NOTE | 2020-02-04 19:06 | CT ---
CT abdomen and pelvis Technique: Multiple axial sections were obtained from above the dome of the diaphragm inferiorly through the pubic symphysis. Intravenous contrast was not utilized. No oral contrast has been given. Findings: Nonobstructing stone noted within the lower left kidney measuring 4 mm. No ureteral dilatation or ureteral stone is seen. Visualized lung bases show nothing acute. Liver contains no focal abnormality. Spleen appears within normal limits. Adrenal glands show no nodule. Pancreas is within normal limits. Aorta shows no aneurysm. No retroperitoneal adenopathy or mesenteric abnormalities are seen. No pelvic mass or adenopathy is noted. No free fluid or inflammatory change is appreciated within the abdomen or pelvis. Appendix not visualized with certainty. Bone window settings were reviewed. Nothing acute is seen within the osseous system. Impression: 1. Small nonobstructing stone within the inferior left kidney. 2. No ureteral dilatation or ureteral stone is seen. 3. Nothing acute is definitely appreciated on noncontrast CT study of the abdomen and pelvis performed as a ureteral stone protocol. Diagnostic code #2 Study was dictated in MDT
--- NOTE | 2020-02-04 20:46 | US ---
Pelvic ultrasound: Multiple real-time images were obtained transvaginally. Ill defined hypoechoic area is seen possibly but not definitely due to a submucosal fibroid. This is located within the uterine body on the left side measuring 2.0 cm. Endometrial thickness is 1.0 cm. Nabothian cysts are noted within the cervix. No free fluid is seen. Left ovary not visualized with history of left oophorectomy. Right ovary shows a small septated cyst which is exophytic off the right ovary measuring 2.1 cm which is most likely incidental given the patient's age. Measurements: Uterus: Length 3.1 cm, AP height 3.7 cm, transverse width 4.9 cm Right ovary: 4.3 x 1.7 x 3.1 cm Impression: 1. Findings believed to be incidental as described above. 2. No findings of ovarian torsion. Nothing acute is appreciated. Diagnostic code #2 Study was dictated in MDT
== END 2020-02-04 21:21 | disposition home or self-care (01) ==
LOC: JD.ED 17:45
DX: N83.201 Unspecified ovarian cyst, right side (principal); D25.0 Submucous leiomyoma of uterus; K21.9 Gastro-esophageal reflux disease without esophagitis; F17.210 Nicotine dependence, cigarettes, uncomplicated; Z79.899 Other long term (current) drug therapy; Z88.8 Allergy status to other drugs, medicaments and biological substances; Z91.018 Allergy to other foods
CPT/HCPCS: 36415; 74176; 76830; 80053; 81001; 81025; 85007; 85027; 96374; 96375; 96376; 99284; J1170; J2405; J7030

== ENCOUNTER 2020-05-05 21:25 | Emergency (ER) | payer BC ==
[2020-05-05] MEDS ORDERED: Ondansetron 4 MG/2 ML SDV IVPUSH ONE ×2 (22:10→23:28)
[2020-05-05] MEDS ORDERED: HYDROmorphone 1 MG/ML Syringe IVPUSH STA (22:10)
[2020-05-05] MEDS ORDERED: Sodium Chloride 0.9% 1,000 ML IV SCH (22:15)
--- NOTE | 2020-05-05 22:15 | EDM.PDOC ---
ED HPI GENERAL MEDICAL PROBLEM - General Chief Complaint: Abdominal Pain Stated Complaint: abdominal pain Time Seen by Provider: 05/05/20 21:50 Source of Information: Reports: Patient History Limitations: Reports: No Limitations - History of Present Illness INITIAL COMMENTS - FREE TEXT/NARRATIVE: Mrs. Gregorio is a very pleasant 34-year-old woman who now presents to the ED stating that she developed crampy right lower quadrant abdominal pain this morning, which waxed and waned over the course of the day, but became more severe, and that she also had sharp pain in the area, starting around 19:30 this evening. She has had nausea, but no vomiting. No recent constipation, or diarrhea. No dysuria, although she does report urinary frequency, and she also reports seeing bloody-appearing stones in her urine. No recent fever. Her pain is made worse if she is upright. She has not identified anything that makes her pain feel better. She states that her current symptoms are similar to when she had a prior kidney stone. The patient took 600 mg of ibuprofen around 10 AM, but no other treatments since then. The patient states that she last ate around 12:30 this afternoon. Here in the ED, the patient is found to be hemodynamically stable, afebrile, saturating 100% on room air. Other than the above symptoms, the patient denies having a recent fever, chills, sore throat, ear pain, nasal or sinus congestion, cough, dyspnea, chest pain, palpitations, vomiting, constipation, diarrhea, urinary symptoms, recent weight gain or weight loss, recent bloody bowel movements or black bowel movements, recent joint aches, headaches, or rashes. The patient's PCP is YANA Ozuna. Her Header Up is Dr. Costa Morris. Right Lower Abdomen Pain Score (Numeric/FACES): 7 - Related Data Allergies Allergy/AdvReac Type Severity Reaction Status Date / Time carrot Allergy Severe Anaphylactic Verified 05/05/20 21:44 Shock docusate [From Colace] Allergy Severe Hives Verified 05/05/20 21:44 Influenza Virus Vaccines Allergy Severe Other Verified 05/05/20 21:44 metronidazole [From Flagyl] Allergy Severe Airway Verified 05/05/20 21:44 Tightness walnut Allergy Severe Anaphylactic Verified 05/05/20 21:44 Shock Home Meds: Home Meds . [No Known Home Meds] 05/05/20 [History] Past Medical History HEENT History: Reports: Impaired Vision (wears glasses), Other (See Below) (Upper dentures) Gastrointestinal History: Reports: GERD Genitourinary History: Reports: Renal Calculus YARD SPECIALIST History: Reports: Ectopic , Other (See Below) (Ovarian cysts) - Infectious Disease History Infectious Disease History: Reports: Herpes - Past Surgical History HEENT Surgical History: Reports: Adenoidectomy, Oral Surgery (dental extractions), Tonsillectomy GI Surgical History: Reports: Cholecystectomy (2019), Hernia, Abdominal (ventral) Female Surgical History: Reports: Oophorectomy (left), Salpingo-Oophorectomy (bilateral), Other (See Below) (Ovarian cystectomy) Musculoskeletal Surgical History: Reports: Other (See Below) (Right knee, open) Social & Family History - Family History Family Medical History: Noncontributory - Tobacco Use Smoking Status *Q: Current Every Day Smoker Years of Tobacco use: 20 Packs/Tins Daily: 0.8 Packs/Tins Daily Comment: Down from 1 ppd - Caffeine Use Caffeine Use: Reports: Coffee - Alcohol Use Alcohol Use History: Yes Alcohol Use Frequency: Rarely - Recreational Drug Use Recreational Drug Use: No - Living Situation & Occupation Living situation: Reports: , with Spouse, with Family (2 kids) 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 ED EXAM, GI/ABD - Physical Exam Exam: See Below Exam Limited By: No Limitations General Appearance: Alert, WD/WN, Mild Distress (appears uncomfortable) Eyes: Bilateral: Normal Appearance, EOMI Ears: Normal External Exam, Hearing Grossly Normal Nose: Normal Inspection Throat/Mouth: Normal Inspection, Normal Lips, Normal Voice, No Airway Compromise Head: Atraumatic, Normocephalic Neck: Normal Inspection, Full Range of Motion Respiratory/Chest: No Respiratory Distress, Lungs Clear, Normal Breath Sounds, No Accessory Muscle Use Cardiovascular: Normal Peripheral Pulses, Regular Rate, Rhythm, No Edema, No Gallop, No JVD, No Murmur, No Rub GI/Abdominal Exam: Normal Bowel Sounds, Soft, No Organomegaly, No Distention, No Abnormal Bruit, No Mass, Tender (Exquisite, to the right lower quadrant only. Nontender elsewhere.) (Female) Exam: Deferred Rectal (Female) Exam: Deferred Back Exam: Normal Inspection, Full Range of Motion, CVA Tenderness (R). No: CVA Tenderness (L) Extremities: Normal Inspection, Normal Range of Motion, No Pedal Edema, Normal Capillary Refill Neurological: Alert, Oriented, Normal Cognition, No Motor/Sensory Deficits Psychiatric: Normal Affect Skin Exam: Warm, Dry, Intact, Normal Color, No Rash Course - Vital Signs Last Recorded V/S: Last Vital Signs Temp 36.3 C 05/05/20 21:35 Pulse 82 05/05/20 21:35 Resp 18 05/05/20 21:35 BP 113/83 05/05/20 21:35 Pulse Ox 100 05/05/20 21:35 - Orders/Labs/Meds Orders: Active Orders 24 hr Category Date Time Status Abdomen Pelvis w Cont [CT] Stat Exams 05/05/20 22:10 Taken CORONAVIRUS COVID-19 KYLAH [MOLEC] Stat Lab 05/05/20 22:13 Ordered Sodium Chloride 0.9% [Normal Saline] 1,000 ml Med 05/05/20 22:15 Active IV ASDIRECTED Medication Orders Sodium Chloride (Normal Saline) 1,000 mls @ 150 mls/hr IV ASDIRECTED NIKOLAS Last Admin: 05/05/20 22:27 Dose: 150 mls/hr Documented by: JOHNIE Labs: Laboratory Tests 05/05/20 05/05/20 05/05/20 Range/Units 22:15 22:15 22:35 WBC 12.55 H (3.98-10.04) K/mm3 RBC 5.13 (3.98-5.22) M/mm3 Hgb 13.9 D (11.2-15.7) gm/dl Hct 41.5 (34.1-44.9) % MCV 80.9 (79.4-94.8) fl MCH 27.1 (25.6-32.2) pg MCHC 33.5 (32.2-35.5) g/dl RDW Std Deviation 41.9 (36.4-46.3) fL Plt Count 260 (182-369) K/mm3 MPV 11.4 (9.4-12.3) fl Neutrophils % (Manual) 91 H (40-60) % Band Neutrophils % 0 (0-10) % Lymphocytes % (Manual) 7 L (20-40) % Atypical Lymphs % 0 % Monocytes % (Manual) 2 (2-10) % Eosinophils % (Manual) 0 L (0.7-5.8) % Basophils % (Manual) 0 L (0.1-1.2) Platelet Estimate Adequate RBC Morph Comment Normal Sodium 138 (136-145) mEq/L Potassium 3.7 (3.5-5.1) mEq/L Chloride 103 (98-107) mEq/L Carbon Dioxide 22 (21-32) mEq/L Anion Gap 16.7 H (5-15) BUN 14 (7-18) mg/dL Creatinine 0.8 (0.55-1.02) mg/dL Est Cr Clr Drug Dosing 98.18 mL/min Estimated GFR (MDRD) > 60 (>60) mL/min BUN/Creatinine Ratio 17.5 (14-18) Glucose 88 (74-106) mg/dL Calcium 9.2 (8.5-10.1) mg/dL Total Bilirubin 0.2 (0.2-1.0) mg/dL AST 21 (15-37) U/L ALT 38 (14-59) U/L Alkaline Phosphatase 75 (46-116) U/L Total Protein 7.9 (6.4-8.2) g/dl Albumin 4.0 (3.4-5.0) g/dl Globulin 3.9 gm/dL Albumin/Globulin Ratio 1.0 (1-2) Urine Color Yellow (Yellow) Urine Appearance Clear (Clear) Urine pH 6.0 (5.0-8.0) Ur Specific [place] 1.015 (1.005-1.030) Urine Protein Negative (Negative) Urine Glucose (UA) Negative (Negative) Urine Ketones Negative (Negative) Urine Occult Blood Trace-intact H (Negative) Urine Nitrite Negative (Negative) Urine Bilirubin Negative (Negative) Urine Urobilinogen 0.2 (0.2-1.0) Ur Leukocyte Esterase Negative (Negative) Urine RBC 5-10 H (0-5) /hpf Urine WBC 0-5 (0-5) /hpf Ur Squamous Epith Cells 0-5 (0-5) /hpf Urine Bacteria Few (FEW) /hpf Urine Mucus Few (FEW) /hpf Urine HCG, Qual (NEGATIVE) 05/05/20 Range/Units 22:35 WBC (3.98-10.04) K/mm3 RBC (3.98-5.22) M/mm3 Hgb (11.2-15.7) gm/dl Hct (34.1-44.9) % MCV (79.4-94.8) fl MCH (25.6-32.2) pg MCHC (32.2-35.5) g/dl RDW Std Deviation (36.4-46.3) fL Plt Count (182-369) K/mm3 MPV (9.4-12.3) fl Neutrophils % (Manual) (40-60) % Band Neutrophils % (0-10) % Lymphocytes % (Manual) (20-40) % Atypical Lymphs % % Monocytes % (Manual) (2-10) % Eosinophils % (Manual) (0.7-5.8) % Basophils % (Manual) (0.1-1.2) Platelet Estimate RBC Morph Comment Sodium (136-145) mEq/L Potassium (3.5-5.1) mEq/L Chloride (98-107) mEq/L Carbon Dioxide (21-32) mEq/L Anion Gap (5-15) BUN (7-18) mg/dL Creatinine (0.55-1.02) mg/dL Est Cr Clr Drug Dosing mL/min Estimated GFR (MDRD) (>60) mL/min BUN/Creatinine Ratio (14-18) Glucose (74-106) mg/dL Calcium (8.5-10.1) mg/dL Total Bilirubin (0.2-1.0) mg/dL AST (15-37) U/L ALT (14-59) U/L Alkaline Phosphatase (46-116) U/L Total Protein (6.4-8.2) g/dl Albumin (3.4-5.0) g/dl Globulin gm/dL Albumin/Globulin Ratio (1-2) Urine Color (Yellow) Urine Appearance (Clear) Urine pH (5.0-8.0) Ur Specific [place] (1.005-1.030) Urine Protein (Negative) Urine Glucose (UA) (Negative) Urine Ketones (Negative) Urine Occult Blood (Negative) Urine Nitrite (Negative) Urine Bilirubin (Negative) Urine Urobilinogen (0.2-1.0) Ur Leukocyte Esterase (Negative) Urine RBC (0-5) /hpf Urine WBC (0-5) /hpf Ur Squamous Epith Cells (0-5) /hpf Urine Bacteria (FEW) /hpf Urine Mucus (FEW) /hpf Urine HCG, Qual Negative (NEGATIVE) Meds: Medications Generic Name Dose Route Start Last Admin Trade Name Freq PRN Reason Stop Dose Admin Sodium Chloride 1,000 mls @ 150 mls/hr 05/05/20 22:15 05/05/20 22:27 Normal Saline IV 150 mls/hr ASDIRECTED NIKOLAS Administration Discontinued Medications Generic Name Dose Route Start Last Admin Trade Name Freq PRN Reason Stop Dose Admin Diatrizoate Meglum/Diatrizoate Sod 120 ml 05/05/20 23:11 05/06/20 00:12 Gastrografin 37% PO 05/05/20 23:12 120 ml ONETIME ONE Administration Hydromorphone HCl 1 mg 05/05/20 22:10 05/05/20 22:28 Dilaudid IVPUSH 05/05/20 22:11 1 mg ONETIME STA Administration Iopamidol 100 ml 05/05/20 23:11 05/06/20 00:12 Isovue-300 (61%) IVPUSH 05/05/20 23:12 100 ml ONETIME ONE Administration Ketorolac Tromethamine 30 mg 05/06/20 00:47 Toradol IVPUSH 05/06/20 00:48 ONETIME STA Ondansetron HCl 4 mg 05/05/20 22:10 05/05/20 22:27 Zofran IVPUSH 05/05/20 22:11 4 mg ONETIME ONE Administration Ondansetron HCl 4 mg 05/05/20 23:28 05/06/20 00:14 Zofran IVPUSH 05/05/20 23:29 4 mg ONETIME ONE Administration Sodium Chloride 10 ml 05/05/20 23:11 05/06/20 00:12 Saline Flush FLUSH 05/05/20 23:12 10 ml ONETIME ONE Administration - Re-Assessments/Exams Free Text/Narrative Re-Assessment/Exam: 05/05/20 22:12 As above, the patient developed right lower quadrant abdominal pain this morning, which became worse around 19:30 this evening. She has had nausea, but no vomiting, constipation, diarrhea, or fever. No dysuria, although she has had urinary frequency, and she also describes passing some bloody appearing stones with her urine. On examination, she is exquisitely tender to the right lower quadrant, but she also has right CVA tenderness, therefore it is not entirely clear if this is an intra-abdominal versus retroperitoneal issue. I have ordered a work-up that includes blood work, a urinalysis, a urine test, a CT scan of her abdomen and pelvis with oral and IV contrast, and a swab for the SARS-CoV-2 virus. In the meantime, the patient will be treated with IV Dilaudid, IV Zofran, and IV fluid. 05/05/20 23:03 The patient's CBC is remarkable for WBC count mildly elevated at 12.55, but with 0% bandemia, and the remainder of her CBC being unremarkable. Her CMP is remarkable for an anion gap slightly elevated at 16.7, but with a bicarbonate normal at 22, and the remainder of her CMP being unremarkable. Her urinalysis is remarkable for trace occult blood with 5-10 RBCs, leukocyte esterase negative with 0-5 WBCs, nitrate negative with few bacteria, and 0-5 squamous epithelial cells. Her urine test is negative. 05/06/20 00:36 CT of the abdomen and pelvis with oral and IV contrast is read by Jerrod as: 1. Right corpus luteum cyst. 2. Nonacute findings as outlined above. 05/06/20 00:47 Notified that the patient would like additional pain medication. Given her CT findings, I have ordered 30 mg of IV Toradol. 05/06/20 00:49 Test results discussed with the patient. I will discharge her home with the recommendation that she take [id number] ibuprofen as needed for discomfort. The patient requested what can be done about long-term/definitive treatment for ovarian cysts. I will refer her to her Header Up. Departure - Departure Time of Disposition: 00:51 Disposition: Home, Self-Care 01 Condition: Good Clinical Impression: Right ovarian cyst - Discharge Information *PRESCRIPTION DRUG MONITORING PROGRAM REVIEWED*: Not Applicable *COPY OF PRESCRIPTION DRUG MONITORING REPORT IN PATIENT YEHUDA: Not Applicable Referrals: Sara Mar PA-C [Primary Care Provider] - Costa Morris MD [Physician] - Forms: ED Department Discharge Additional Instructions: You were seen in the emergency room after developing lower right abdominal pain, which became worse over the course of the day. Work-up in the ER included blood work, a urinalysis, a urine test, a CT scan of your abdomen and pelvis with oral and IV contrast, and a swab for the SARS-CoV-2 virus. Your blood work and urine studies were unremarkable. The CT scan found a 3.2 cm right ovarian cyst, which appears to be the cause of your pain. You will be notified in the next few days of the results of your test for the SARS-CoV-2 virus. Going forward, we recommend that you take [id number] ibuprofen, 3 tablets (600 mg) up to every 8 hours, with food, as needed for discomfort. Please follow-up with your Header Up, Dr. Costa Morris, to discuss long- term/definitive treatment options for ovarian cysts. If any other problems, please do not hesitate to return to the ER. Sepsis Event Note (ED) - Evaluation Sepsis Screening Result: No Definite Risk - Focused Exam Vital Signs: Vital Signs Temp Pulse Resp BP Pulse Ox 05/05/20 21:35 36.3 C 82 18 113/83 100 - My Orders Last 24 Hours: My Active Orders 05/05/20 22:10 Abdomen Pelvis w Cont [CT] Stat 05/05/20 22:13 CORONAVIRUS COVID-19 KYLAH [MOLEC] Stat 05/05/20 22:15 Sodium Chloride 0.9% [Normal Saline] 1,000 ml IV ASDIRECTED - Assessment/Plan Last 24 Hours: My Active Orders 05/05/20 22:10 Abdomen Pelvis w Cont [CT] Stat 05/05/20 22:13 CORONAVIRUS COVID-19 KYLAH [MOLEC] Stat 05/05/20 22:15 Sodium Chloride 0.9% [Normal Saline] 1,000 ml IV ASDIRECTED
[2020-05-05] MEDS ORDERED: Diatrizoate Meglumine/Diatrizoate Sodium 37% 120 ML Bottle PO ONE (23:11)
[2020-05-05] MEDS ORDERED: Iopamidol 612 MG/ML 100 ML Bottle IVPUSH ONE (23:11)
[2020-05-05] MEDS ORDERED: Sodium Chloride 0.9% 10 ML Syringe FLUSH ONE (23:11)
[2020-05-06] MEDS ORDERED: Ketorolac 30 MG/ML SDV IVPUSH STA (00:47)
--- NOTE | 2020-05-06 06:47 | CT ---
CT abdomen and pelvis Technique: Multiple axial sections were obtained from above the dome of the diaphragm inferiorly through the pubic symphysis. Intravenous and oral contrast was utilized. Delayed images were obtained through the bladder. Reconstructed coronal and sagittal images were obtained. Comparison: Prior CT abdomen and pelvis study of 02/04/20. Findings: Visualized lung bases show nothing acute. Adrenal glands show no nodule. Liver contains no focal parenchymal abnormality. Spleen appears within normal limits. Pancreas shows no discrete abnormality. Kidneys show symmetric contrast enhancement. Several small cortical lesions noted within the left kidney which are nonspecific due to their small size but statistically most likely representing small cortical cysts. Small nonobstructing stone noted within the lower left kidney. No additional renal abnormality is appreciated. Gallbladder not visualized. Aorta shows no aneurysm. No retroperitoneal adenopathy or mesenteric abnormalities are seen. No pelvic mass or adenopathy is seen. Cyst is noted within the right ovary measuring 2.9 cm. Small amount of free fluid seen extending off the right adnexa most likely relating to cyst leakage. Appendix not seen with certainty. No inflammatory change is seen. Delayed images shows contrast within the distal ureters and within the bladder. Bone window settings were reviewed which appear within normal limits for the patient's age. Impression: 1. 2.9 cm cyst within the right ovary. Small amount of fluid is seen off the right ovary which is felt compatible with cyst leakage. 2. Other findings believed to be incidental as described above. Nothing acute is otherwise seen. Diagnostic code #3 This report was dictated in MDT I agree with preliminary report from [facility], finalized on 05/06/20, 1:32 AM Central Daylight Time
== END 2020-05-06 01:15 | disposition home or self-care (01) ==
LOC: JD.ED 21:25
DX: N83.201 Unspecified ovarian cyst, right side (principal); F17.210 Nicotine dependence, cigarettes, uncomplicated; Z91.018 Allergy to other foods; Z88.7 Allergy status to serum and vaccine; Z88.1 Allergy status to other antibiotic agents; Z20.828 Contact with and (suspected) exposure to other viral communicable diseases
CPT/HCPCS: 36415; 74177; 80053; 81001; 81025; 85007; 85027; 87635; 96361; 96374; 96375; 96376; 99284; J1170; J1885; J2405; J7030; Q9963; Q9967; U0002

== ENCOUNTER 2021-07-20 10:26 | Emergency (ER) | payer BC ==
[2021-07-20] MEDS ORDERED: Sodium Chloride 0.9% 10 ML Syringe FLUSH PRN (10:45)
--- NOTE | 2021-07-20 11:13 | EDM.PDOC ---
ED HPI GENERAL MEDICAL PROBLEM - General Chief Complaint: Chest Pain Stated Complaint: CHEST PAIN Time Seen by Provider: 07/20/21 11:01 Source of Information: Reports: Patient, RN Notes Reviewed History Limitations: Reports: No Limitations - History of Present Illness INITIAL COMMENTS - FREE TEXT/NARRATIVE: Patient is a 36-year-old female who presents to the ER for the evaluation of her chest discomfort. States that she developed some left-sided chest discomfort last night, has been constant since it showed up, and has not really gotten much better. She took 1 aspirin last night it seemed to help a little bit. Not complaining of anything else that really makes it better or worse. Does not radiate anywhere. States she has not felt pain like this before in her chest. She is status post Covid infection was diagnosed on 07/10/2021. She was not vaccinated for COVID-19. States that she does have a nonproductive dry cough at times as well as not complaining of any hemoptysis. Not having any fevers or chills, worsening shortness of breath or any sort of nausea/vomiting/diarrhea. States that she went to her local ambulance station, and did a EKG on her last night, and she was concerned about a bundle branch block in aVL. She is not known to have a bundle branch block before this. Primary care provider is Francisca Mar. Patient states that she did try to go to the clinic however they did direct her to the ER due to her chest pain. Chest Pain Score (Numeric/FACES): 4 - Related Data Allergies Allergy/AdvReac Type Severity Reaction Status Date / Time carrot Allergy Severe Anaphylactic Verified 07/20/21 10:45 Shock metronidazole [From Flagyl] Allergy Severe Airway Verified 07/20/21 10:45 Tightness walnut Allergy Severe Anaphylactic Verified 07/20/21 10:45 Shock docusate [From Colace] Allergy Intermediate Hives Verified 07/20/21 11:02 Influenza Virus Vaccines Allergy Intermediate Hives Verified 07/20/21 11:02 Home Meds: Home Meds . [No Known Home Meds] 05/05/20 [History] Past Medical History HEENT History: Reports: Impaired Vision, Other (See Below) Other HEENT History: Upper dentures Gastrointestinal History: Reports: GERD Other Gastrointestinal History: Diarrhea Genitourinary History: Reports: Renal Calculus Other Genitourinary History: Past UtI's and Kidney stones SILK FINISHER History: Reports: Ectopic , Other (See Below) Other SILK FINISHER History: Gardenella vaginitis, ovarian cyst Musculoskeletal History: Reports: Other (See Below) Other Musculoskeletal History: Tendinitis, left ankle sprain Neurological History: Reports: Headaches, Chronic - Infectious Disease History Infectious Disease History: Reports: Herpes, Novel Coronavirus (07/10/21) Other Infectious Disease History: Cold sores - Past Surgical History HEENT Surgical History: Reports: Adenoidectomy, Oral Surgery, Tonsillectomy GI Surgical History: Reports: Cholecystectomy, Hernia, Abdominal Other GI Surgeries/Procedures: Triple hernia repair Female Surgical History: Reports: Oophorectomy, Salpingo-Oophorectomy, Other (See Below) Other Female Surgeries/Procedures: Diagnostic laparoscopy Musculoskeletal Surgical History: Reports: Other (See Below) Other Musculoskeletal Surgeries/Procedures:: Right knee surgery for cyst removal Social & Family History - Family History Family Medical History: No Pertinent Family History - Tobacco Use Tobacco Use Status *Q: Current Every Day Tobacco User Years of Tobacco use: 20 Packs/Tins Daily: 1 - Caffeine Use Caffeine Use: Reports: Coffee, Energy Drinks - Recreational Drug Use Recreational Drug Use: No - Living Situation & Occupation Living situation: Reports: , with Spouse, with Family (2 kids) 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 ED EXAM, GENERAL - Physical Exam Exam: See Below Exam Limited By: No Limitations General Appearance: Alert, WD/WN, No Apparent Distress Respiratory/Chest: No Respiratory Distress, Lungs Clear, Normal Breath Sounds, No Accessory Muscle Use, Other (Left mid-axillary chest pain aroun rib 4 or 5) Cardiovascular: Normal Peripheral Pulses, Regular Rate, Rhythm, No Edema Peripheral Pulses: 2+: Radial (L), Radial (R) GI/Abdominal: Normal Bowel Sounds, Soft, Non-Tender, No Distention, No Mass Extremities: Normal Inspection, Normal Capillary Refill Neurological: Alert, Oriented, Normal Cognition, No Motor/Sensory Deficits Psychiatric: Normal Affect, Normal Mood Skin Exam: Warm, Dry, Intact, Normal Color, No Rash #1 Interpretation EKG Date: 07/20/21 Time: 10:39 Rhythm: NSR Rate (Beats/Min): 75 [place]: Normal P-Wave: Present QRS: Normal ST-T: Normal QT: Normal EKG Interpretation Comments: No obvious ischemia or acute ST changes noted, reviewed by myself and Dr. Owens. Course - Vital Signs Last Recorded V/S: Last Vital Signs Temp 97.9 F 07/20/21 10:42 Pulse 87 07/20/21 10:42 Resp 17 07/20/21 10:42 BP 117/72 07/20/21 10:42 Pulse Ox 100 07/20/21 10:42 - Orders/Labs/Meds Orders: Active Orders 24 hr Category Date Time Status Cardiac Monitoring [RC] STAT Care 07/20/21 10:45 Active Communication Order [RC] STAT Care 07/20/21 10:45 Active Peripheral IV Care [RC] . DIRECTED Care 07/20/21 10:45 Active Sodium Chloride 0.9% [Saline Flush] Med 07/20/21 10:45 Active 10 ml FLUSH ASDIRECTED PRN Peripheral IV Insertion Adult [OM.PC] Stat Oth 07/20/21 10:45 Ordered Medication Orders Sodium Chloride (Sodium Chloride 0.9% 10 Ml Syringe) 10 ml FLUSH ASDIRECTED PRN PRN Reason: Keep Vein Open Last Admin: 07/20/21 10:51 Dose: 10 ml Documented by: JOHNIE Labs: Laboratory Tests 07/20/21 07/20/21 07/20/21 Range/Units 10:45 10:45 10:45 WBC 7.62 (3.98-10.04) K/mm3 RBC 5.69 H (3.98-5.22) M/mm3 Hgb 13.1 (11.2-15.7) gm/dl Hct 40.6 (34.1-44.9) % MCV 71.4 L D (79.4-94.8) fl MCH 23.0 L (25.6-32.2) pg MCHC 32.3 (32.2-35.5) g/dl RDW Std Deviation 48.2 H (36.4-46.3) fL Plt Count 261 (182-369) K/mm3 MPV 11.7 (9.4-12.3) fl Neut % (Auto) 62.9 (34.0-71.1) % Lymph % (Auto) 24.9 (19.3-51.7) % [place] % (Auto) 10.8 (4.7-12.5) % Eos % (Auto) 1.0 (0.7-5.8) Baso % (Auto) 0.1 (0.1-1.2) % Neut # (Auto) 4.79 (1.56-6.13) K/mm3 Lymph # (Auto) 1.90 (1.18-3.74) K/mm3 [place] # (Auto) 0.82 H (0.24-0.36) K/mm3 Eos # (Auto) 0.08 (0.04-0.36) K/mm3 Baso # (Auto) 0.01 (0.01-0.08) K/mm3 Manual Slide Review Normal smear PT 10.4 (9.7-12.0) SECONDS INR 0.93 APTT 25.0 (21.7-31.4) SECONDS D-Dimer, Quantitative 0.34 (0.19-0.50) mg/L Sodium (136-145) mEq/L Potassium (3.5-5.1) mEq/L Chloride (98-107) mEq/L Carbon Dioxide (21-32) mEq/L Anion Gap (5-15) BUN (7-18) mg/dL Creatinine (0.55-1.02) mg/dL Est Cr Clr Drug Dosing mL/min Estimated GFR (MDRD) (>60) mL/min BUN/Creatinine Ratio (14-18) Glucose (70-99) mg/dL Calcium (8.5-10.1) mg/dL Magnesium (1.8-2.4) mg/dL Total Bilirubin (0.2-1.0) mg/dL AST (15-37) U/L ALT (14-59) U/L Alkaline Phosphatase (46-116) U/L Troponin I (0.00-0.056) ng/mL C-Reactive Protein (<1.0) mg/dL Total Protein (6.4-8.2) g/dl Albumin (3.4-5.0) g/dl Globulin gm/dL Albumin/Globulin Ratio (1-2) HCG, Quant < 1.0 mIU/mL 07/20/21 Range/Units 10:45 WBC (3.98-10.04) K/mm3 RBC (3.98-5.22) M/mm3 Hgb (11.2-15.7) gm/dl Hct (34.1-44.9) % MCV (79.4-94.8) fl MCH (25.6-32.2) pg MCHC (32.2-35.5) g/dl RDW Std Deviation (36.4-46.3) fL Plt Count (182-369) K/mm3 MPV (9.4-12.3) fl Neut % (Auto) (34.0-71.1) % Lymph % (Auto) (19.3-51.7) % [place] % (Auto) (4.7-12.5) % Eos % (Auto) (0.7-5.8) Baso % (Auto) (0.1-1.2) % Neut # (Auto) (1.56-6.13) K/mm3 Lymph # (Auto) (1.18-3.74) K/mm3 [place] # (Auto) (0.24-0.36) K/mm3 Eos # (Auto) (0.04-0.36) K/mm3 Baso # (Auto) (0.01-0.08) K/mm3 Manual Slide Review PT (9.7-12.0) SECONDS INR APTT (21.7-31.4) SECONDS D-Dimer, Quantitative (0.19-0.50) mg/L Sodium 141 (136-145) mEq/L Potassium 4.1 (3.5-5.1) mEq/L Chloride 106 (98-107) mEq/L Carbon Dioxide 23 (21-32) mEq/L Anion Gap 16.1 H (5-15) BUN 13 (7-18) mg/dL Creatinine 0.9 (0.55-1.02) mg/dL Est Cr Clr Drug Dosing 85.65 mL/min Estimated GFR (MDRD) > 60 (>60) mL/min BUN/Creatinine Ratio 14.4 (14-18) Glucose 79 (70-99) mg/dL Calcium 9.0 (8.5-10.1) mg/dL Magnesium 1.9 (1.8-2.4) mg/dL Total Bilirubin 0.3 (0.2-1.0) mg/dL AST 18 (15-37) U/L ALT 29 (14-59) U/L Alkaline Phosphatase 65 (46-116) U/L Troponin I < 0.017 (0.00-0.056) ng/mL C-Reactive Protein <0.2 (<1.0) mg/dL Total Protein 7.6 (6.4-8.2) g/dl Albumin 4.0 (3.4-5.0) g/dl Globulin 3.6 gm/dL Albumin/Globulin Ratio 1.1 (1-2) HCG, Quant mIU/mL Meds: Medications Generic Name Dose Route Start Last Admin Trade Name Freq PRN Reason Stop Dose Admin Sodium Chloride 10 ml 07/20/21 10:45 07/20/21 10:51 Sodium Chloride 0.9% 10 Ml Syringe FLUSH 10 ml ASDIRECTED PRN Administration Keep Vein Open - Re-Assessments/Exams Free Text/Narrative Re-Assessment/Exam: 07/20/21 11:12 Patient presents to the ER for the evaluation of her left-sided chest pain. EKG done at the time of triage demonstrates normal sinus rhythm with no other acute ST abnormalities. Other labs are pending at this time. 07/20/21 12:16 Labs have resulted and are unremarkable. These were discussed with the patient and she verbalized understanding. We will have her try conservative recommendations and follow-up in clinic if symptoms are not much better. Departure - Departure Time of Disposition: 12:16 Disposition: Home, Self-Care 01 Condition: Good Clinical Impression: Left-sided chest wall pain Instructions: Nonspecific Chest Pain, Adult, [id number] Referrals: Sara Mar PA-C [Primary Care Provider] - Forms: ED Department Discharge Additional Instructions: You were evaluated in the ER today for your chest pain. Your EKG, chest x-ray, and laboratory evaluation are all unremarkable. The chest pain is thought likely due to musculoskeletal etiology. You may take 500 mg Tylenol (acetaminophen) or 600 mg ibuprofen (Advil, Motrin) every 6 hours as needed for ongoing pain management. Do not exceed 4000 mg Tylenol or 3200 mg ibuprofen in a 24-hour time span. You may also try your topical NSAID that you noted you had at home to see if this helps provide some relief. Please follow-up with your regular provider for ongoing management of your health. Please return to the ER at any time if symptoms change or worsen. Sepsis Event Note (ED) - Evaluation Sepsis Screening Result: No Definite Risk - Focused Exam Vital Signs: Vital Signs Temp Pulse Resp BP Pulse Ox 07/20/21 10:42 97.9 F 87 17 117/72 100 - My Orders Last 24 Hours: My Active Orders 07/20/21 10:45 Cardiac Monitoring [RC] STAT Communication Order [RC] STAT Peripheral IV Care [RC] . DIRECTED Sodium Chloride 0.9% [Saline Flush] 10 ml FLUSH ASDIRECTED PRN Peripheral IV Insertion Adult [OM.PC] Stat - Assessment/Plan Last 24 Hours: My Active Orders 07/20/21 10:45 Cardiac Monitoring [RC] STAT Communication Order [RC] STAT Peripheral IV Care [RC] . DIRECTED Sodium Chloride 0.9% [Saline Flush] 10 ml FLUSH ASDIRECTED PRN Peripheral IV Insertion Adult [OM.PC] Stat
== END 2021-07-20 12:20 | disposition home or self-care (01) ==
LOC: JD.ED 10:26
DX: R07.89 Other chest pain (principal); Z91.018 Allergy to other foods; Z88.7 Allergy status to serum and vaccine; Z88.1 Allergy status to other antibiotic agents; Z72.0 Tobacco use; Z86.16 Personal history of COVID-19
CPT/HCPCS: 36415; 80053; 83735; 84484; 84702; 85025; 85379; 85610; 85730; 86140; 93005; 99285-25

== ENCOUNTER 2022-01-29 12:28 | Emergency (ER) | payer BC ==
[2022-01-29] MEDS ORDERED: Ketorolac 60 MG/2 ML SDV IM ONE (12:58)
== END 2022-01-29 14:00 | disposition home or self-care (01) ==
LOC: JD.ED 12:28
DX: S50.02XA Contusion of left elbow, initial encounter (principal); F17.210 Nicotine dependence, cigarettes, uncomplicated; Z86.16 Personal history of COVID-19; Z90.49 Acquired absence of other specified parts of digestive tract; Z91.018 Allergy to other foods; Z88.7 Allergy status to serum and vaccine; Z88.1 Allergy status to other antibiotic agents; Z88.8 Allergy status to other drugs, medicaments and biological substances; X58.XXXA Exposure to other specified factors, initial encounter
CPT/HCPCS: 73080; 96372; 99283; J1885

== ENCOUNTER 2022-07-03 10:26 | Emergency (ER) | payer BC ==
[2022-07-03] MEDS ORDERED: Ketorolac 60 MG/2 ML SDV IM ONE (13:58)
[2022-07-03] MEDS ORDERED: HYDROmorphone 1 MG/ML Syringe IM ONE (15:20)
== END 2022-07-03 16:15 | disposition home or self-care (01) ==
LOC: JD.ED 10:26
DX: S70.01XA Contusion of right hip, initial encounter (principal); Z91.018 Allergy to other foods; Z88.8 Allergy status to other drugs, medicaments and biological substances; Z88.7 Allergy status to serum and vaccine; W01.0XXA Fall on same level from slipping, tripping and stumbling without subsequent striking against object, initial encounter
CPT/HCPCS: 73080; 73502; 96372; 99283; J1170; J1885

== ENCOUNTER 2023-08-18 18:05 | Emergency (ER) | payer BC ==
[2023-08-18] MEDS ORDERED: Ondansetron 4 MG/2 ML SDV IVPUSH ONE (19:13)
[2023-08-18] MEDS ORDERED: Ketorolac 30 MG/ML SDV IVPUSH ONE (19:13)
[2023-08-18 19:22] LABS: BASOPHILS ABSOLUTE AUTO 0.1 K/mm3 (0.0-0.2); BASOPHILS PERCENT AUTO 0.8 % (0.0-1.0); EOSINOPHILS ABSOLUTE AUTO 0.2 K/mm3 (0.0-0.4); HEMATOCRIT 41.7 % (37.0-47.0); IMMATURE GRAN ABSOLUTE AUTO 0.02 K/mm3 (0.00-0.05); IMMATURE GRAN PERCENT AUTO 0.3 % (0.0-0.4); LYMPHOCYTES ABSOLUTE AUTO 1.8 K/mm3 (1.0-4.8); LYMPHOCYTES PERCENT AUTO 22.8 % (24.0-44.0); MEAN CORPUSCULAR HEMOGLOBIN 28.2 pg (28.0-32.0); MEAN CORPUSCULAR HGB CONC 33.6 g/dl (32.0-36.0); MEAN CORPUSCULAR VOLUME 84.1 fl (83.0-99.0); MEAN PLATELET VOLUME 10.6 fl (9.4-12.3); MONOCYTES ABSOLUTE AUTO 0.9 K/mm3 (0.0-0.8); MONOCYTES PERCENT AUTO 11.9 % (0.0-8.0); NEUTROPHILS ABSOLUTE AUTO 4.9 K/mm3 (1.8-7.7); NEUTROPHILS PERCENT AUTO 62.2 % (41.0-71.0); PLATELET COUNT,PLT 290 K/mm3 (150-400); RED BLOOD CELL COUNT 4.96 M/mm3 (4.10-5.30); WHITE BLOOD CELL COUNT,WBC 7.81 K/mm3 (3.9-11.3)
[2023-08-18] MEDS: Sodium Chloride 0.9% 10 ML Syringe FLUSH PRN ×2 (19:25→19:59)
[2023-08-18 19:44] LABS: ALBUMIN 4.3 g/dl (3.4-5.0); ANION GAP 15.6 (5-15); BILIRUBIN TOTAL 0.4 mg/dL (0.2-1.0); CALCIUM 9.1 mg/dL (8.5-10.1); EST CRCL DRUG DOSING (CG) 75.63 mL/min; MAGNESIUM 1.9 mg/dL (1.8-2.4); POTASSIUM,K 3.6 mEq/L (3.5-5.1); PROTEIN TOTAL,TP 8.5 g/dl (6.4-8.2)
[2023-08-18] MEDS ORDERED: HYDROmorphone 1 MG/ML Syringe IVPUSH ONE (19:54)
[2023-08-18 21:03] LABS: APPEARANCE,URINE CLEAR (Clear); BILIRUBIN,URINE NEGATIVE (Negative); COLOR,URINE YELLOW (Yellow); GLUCOSE,URINE NEGATIVE (Negative); KETONES,URINE NEGATIVE (Negative); LEUKOCYTE ESTERASE,URINE 1+ (Negative); NITRITE,URINE NEGATIVE (Negative); OCCULT BLOOD,URINE 2+ (Negative); PH,URINE 5.5 (5.0-8.0); PROTEIN,URINE NEGATIVE (Negative); UROBILINOGEN,URINE 0.2 (0.2-1.0)
[2023-08-18 21:16] LABS: BACTERIA,URINE MODERATE /hpf (FEW); MUCUS,URINE FEW /hpf (FEW); SQUAMOUS EPITHELIAL CELLS,UR 0-5 /hpf (0-5)
== END 2023-08-18 21:36 | disposition home or self-care (01) ==
LOC: JD.ED 18:05
DX: R10.31 Right lower quadrant pain (principal); F17.210 Nicotine dependence, cigarettes, uncomplicated; Z86.16 Personal history of COVID-19; Z88.8 Allergy status to other drugs, medicaments and biological substances; Z91.018 Allergy to other foods; Z88.7 Allergy status to serum and vaccine; Z79.899 Other long term (current) drug therapy
CPT/HCPCS: 36415; 76856; 80053; 81001; 83735; 85025; 96374; 96375; 99284; J1170; J1885; J2405; J3490

== ENCOUNTER 2023-09-20 18:27 | Emergency (ER) | payer BC ==
[2023-09-20] MEDS: Famotidine 20 MG/2 ML SDV IVPUSH ONE (18:55)
[2023-09-20] MEDS: methylPREDNISolone Sodium Succinate 125 MG/2 ML SDV IVPUSH ONE (18:55)
[2023-09-20] MEDS: diphenhydrAMINE 50 MG/ML SDV IVPUSH ONE (18:55)
[2023-09-20] MEDS: Ondansetron 4 MG/2 ML SDV IVPUSH ONE (19:35)
== END 2023-09-20 20:43 | disposition home or self-care (01) ==
LOC: JD.ED 18:27
DX: T78.40XA Allergy, unspecified, initial encounter (principal); F17.210 Nicotine dependence, cigarettes, uncomplicated; Z90.49 Acquired absence of other specified parts of digestive tract; Z79.899 Other long term (current) drug therapy; Z88.7 Allergy status to serum and vaccine; Z88.8 Allergy status to other drugs, medicaments and biological substances; Z91.018 Allergy to other foods
CPT/HCPCS: 96374; 96375; 99283; J1200; J2405; J2930; J3490; 99282

== ENCOUNTER 2023-12-16 14:18 | Emergency (ER) | payer BC ==
[2023-12-16] MEDS: Lactated Ringers 1,000 ML IV ONE (17:29)
[2023-12-16] MEDS: Ketorolac 30 MG/ML SDV IVPUSH ONE (17:32)
[2023-12-16] MEDS: diphenhydrAMINE 50 MG/ML SDV IVPUSH ONE (17:34)
[2023-12-16] MEDS: Metoclopramide 10 MG/2 ML SDV IVPUSH ONE (17:35)
[2023-12-16] MEDS: fentaNYL 100 MCG/2 ML SDV IVPUSH ONE (18:49)
== END 2023-12-16 19:16 | disposition home or self-care (01) ==
LOC: JD.ED 14:18
DX: G43.909 Migraine, unspecified, not intractable, without status migrainosus (principal); F17.210 Nicotine dependence, cigarettes, uncomplicated; K21.9 Gastro-esophageal reflux disease without esophagitis; Z86.16 Personal history of COVID-19; Z79.899 Other long term (current) drug therapy; Z88.8 Allergy status to other drugs, medicaments and biological substances; Z88.7 Allergy status to serum and vaccine; Z91.018 Allergy to other foods
CPT/HCPCS: 96361; 96374; 96375; 99283; J1200; J1885; J2765; J3010; J7120

== ENCOUNTER 2024-02-26 12:37 | Inpatient (IN) | payer BC ==
[2024-02-26] MEDS: Iopamidol 612 MG/ML 100 ML Bottle IVPUSH ONE (13:49)
[2024-02-26] MEDS: Sodium Chloride 0.9% 10 ML Syringe FLUSH PRN (13:49)
[2024-02-26 13:54] LABS: BASOPHILS ABSOLUTE AUTO 0.1 K/mm3 (0.0-0.2); BASOPHILS PERCENT AUTO 0.6 % (0.0-1.0); EOSINOPHILS ABSOLUTE AUTO 0.2 K/mm3 (0.0-0.4); EOSINOPHILS PERCENT AUTO 1.8 % (0.0-6.0); HEMATOCRIT 45.4 % (37.0-47.0); HEMOGLOBIN 14.8 gm/dl (12.0-16.0); IMMATURE GRAN ABSOLUTE AUTO 0.04 K/mm3 (0.00-0.05); IMMATURE GRAN PERCENT AUTO 0.4 % (0.0-0.4); LYMPHOCYTES ABSOLUTE AUTO 2.8 K/mm3 (1.0-4.8); LYMPHOCYTES PERCENT AUTO 28.5 % (24.0-44.0); MEAN CORPUSCULAR HEMOGLOBIN 26.8 pg (28.0-32.0); MEAN CORPUSCULAR HGB CONC 32.6 g/dl (32.0-36.0); MEAN CORPUSCULAR VOLUME 82.2 fl (83.0-99.0); MEAN PLATELET VOLUME 11.4 fl (9.4-12.3); MONOCYTES ABSOLUTE AUTO 0.8 K/mm3 (0.0-0.8); NEUTROPHILS PERCENT AUTO 60.7 % (41.0-71.0); PLATELET COUNT,PLT 272 K/mm3 (150-400); RED BLOOD CELL COUNT 5.52 M/mm3 (4.10-5.30); WHITE BLOOD CELL COUNT,WBC 9.84 K/mm3 (3.9-11.3)
[2024-02-26 13:57] LABS: APPEARANCE,URINE CLEAR (Clear); BILIRUBIN,URINE NEGATIVE (Negative); COLOR,URINE LIGHT YELLOW (Yellow); GLUCOSE,URINE NEGATIVE (Negative); KETONES,URINE NEGATIVE (Negative); LEUKOCYTE ESTERASE,URINE NEGATIVE (Negative); NITRITE,URINE NEGATIVE (Negative); OCCULT BLOOD,URINE TRACE-LYSED (Negative); PH,URINE 6.5 (5.0-8.0); PROTEIN,URINE NEGATIVE (Negative); UROBILINOGEN,URINE 0.2 (0.2-1.0)
[2024-02-26 14:05] LABS: BACTERIA,URINE RARE /hpf (FEW); EPITHELIAL CELLS,URINE 0-5 /hpf (0-5); MUCUS,URINE RARE /hpf (FEW); RBC,URINE 0-5 /hpf (0-5); WBC,URINE 0-5 /hpf (0-5)
[2024-02-26] MEDS: Alum Hydrox/Mag Hydrox/Simeth 30 ML, Lidocaine 2% 15 ML PO ONE (14:17)
[2024-02-26 14:19] LABS: ALBUMIN 4.1 g/dl (3.4-5.0); ANION GAP 16.5 (5-15); BILIRUBIN TOTAL 0.3 mg/dL (0.2-1.0); BUN/CREATININE RATIO 14.4 (14-18); CALCIUM 9.2 mg/dL (8.5-10.1); CREATININE 0.9 mg/dL (0.55-1.02); EST CRCL DRUG DOSING (CG) 84.03 mL/min; POTASSIUM,K 4.5 mEq/L (3.5-5.1); PROTEIN TOTAL,TP 8.4 g/dl (6.4-8.2)
[2024-02-26] MEDS ORDERED: Naloxone 0.4 MG/ML SDV IVPUSH PRN (15:16)
[2024-02-26] MEDS: fentaNYL 100 MCG/2 ML SDV IVPUSH ONE (15:23)
[2024-02-26] MEDS: Lactated Ringers 1,000 ML IV SCH (15:37)
[2024-02-26] MEDS: Nicotine 14 MG/24 Hr Patch TRDERM ONE (15:52)
[2024-02-26] MEDS: Diatrizoate Meglumine/Diatrizoate Sodium 37% 120 ML Bottle PO ONE (16:00)
[2024-02-26] MEDS ORDERED: Acetaminophen 325 MG Tab PO PRN (16:46)
[2024-02-26] MEDS: HYDROmorphone 0.5 MG/0.5 ML Syringe IVPUSH PRN (16:53)
[2024-02-26] MEDS: Sodium Chloride 0.9% 1,000 ML IV SCH (19:22)
[2024-02-26] MEDS: Ondansetron 4 MG/2 ML SDV IVPUSH PRN (19:57)
[2024-02-26] MEDS: Ketorolac 30 MG/ML SDV IVPUSH PRN (19:58)
[2024-02-26] MEDS: Pantoprazole 40 MG Vial IVPUSH SCH (20:02)
[2024-02-27 06:11] LABS: BASOPHILS ABSOLUTE AUTO 0.1 K/mm3 (0.0-0.2); BASOPHILS PERCENT AUTO 0.6 % (0.0-1.0); EOSINOPHILS ABSOLUTE AUTO 0.3 K/mm3 (0.0-0.4); EOSINOPHILS PERCENT AUTO 3.2 % (0.0-6.0); HEMOGLOBIN 12.3 gm/dl (12.0-16.0); IMMATURE GRAN ABSOLUTE AUTO 0.03 K/mm3 (0.00-0.05); IMMATURE GRAN PERCENT AUTO 0.4 % (0.0-0.4); LYMPHOCYTES ABSOLUTE AUTO 2.3 K/mm3 (1.0-4.8); LYMPHOCYTES PERCENT AUTO 27.6 % (24.0-44.0); MEAN CORPUSCULAR HEMOGLOBIN 27.3 pg (28.0-32.0); MEAN CORPUSCULAR HGB CONC 32.4 g/dl (32.0-36.0); MEAN CORPUSCULAR VOLUME 84.3 fl (83.0-99.0); MONOCYTES ABSOLUTE AUTO 0.9 K/mm3 (0.0-0.8); MONOCYTES PERCENT AUTO 10.9 % (0.0-8.0); NEUTROPHILS ABSOLUTE AUTO 4.8 K/mm3 (1.8-7.7); NEUTROPHILS PERCENT AUTO 57.3 % (41.0-71.0); PLATELET COUNT,PLT 224 K/mm3 (150-400); RED BLOOD CELL COUNT 4.51 M/mm3 (4.10-5.30); WHITE BLOOD CELL COUNT,WBC 8.32 K/mm3 (3.9-11.3)
[2024-02-27 06:41] LABS: ANION GAP 13.7 (5-15); BUN/CREATININE RATIO 14.4 (14-18); CREATININE 0.9 mg/dL (0.55-1.02); EST CRCL DRUG DOSING (CG) 84.03 mL/min; MAGNESIUM 1.8 mg/dL (1.8-2.4); PHOSPHORUS 3.2 mg/dL (2.6-4.7)
[2024-02-27 08:00] LABS: CALCIUM 7.9 mg/dL (8.5-10.1); POTASSIUM,K 3.7 mEq/L (3.5-5.1)
[2024-02-27] MEDS: Calcium Gluconate 1 GM in Sodium Chloride 0.9% 100 ML IV ONE (08:43)
[2024-02-27] MEDS: Heparin Sodium 5,000 Units/ML Vial SUBCUT SCH (10:10)
[2024-02-27] MEDS: Sodium Chloride 0.9% 1,000 ML IV SCH (12:43)
[2024-02-27] MEDS: Psyllium Husk Powder Sugar Free 5.85 GM Packet PO SCH (15:46)
[2024-02-27] MEDS: Nicotine 14 MG/24 Hr Patch TRDERM ONE (16:44)
[2024-02-28] MEDS ORDERED: Pantoprazole 40 MG Tab.CR PO SCH (07:00)
[2024-02-28] MEDS ORDERED: Sodium Chloride 0.9% 1,000 ML IV SCH (14:15)
[2024-02-28 19:14] LABS: BASOPHILS PERCENT AUTO 0.4 % (0.0-1.0); EOSINOPHILS ABSOLUTE AUTO 0.2 K/mm3 (0.0-0.4); HEMATOCRIT 38.4 % (37.0-47.0); HEMOGLOBIN 12.6 gm/dl (12.0-16.0); IMMATURE GRAN ABSOLUTE AUTO 0.03 K/mm3 (0.00-0.05); IMMATURE GRAN PERCENT AUTO 0.4 % (0.0-0.4); LYMPHOCYTES PERCENT AUTO 24.5 % (24.0-44.0); MEAN CORPUSCULAR HEMOGLOBIN 27.5 pg (28.0-32.0); MEAN CORPUSCULAR HGB CONC 32.8 g/dl (32.0-36.0); MEAN CORPUSCULAR VOLUME 83.7 fl (83.0-99.0); MEAN PLATELET VOLUME 11.2 fl (9.4-12.3); MONOCYTES ABSOLUTE AUTO 0.7 K/mm3 (0.0-0.8); MONOCYTES PERCENT AUTO 8.9 % (0.0-8.0); NEUTROPHILS ABSOLUTE AUTO 5.3 K/mm3 (1.8-7.7); NEUTROPHILS PERCENT AUTO 63.8 % (41.0-71.0); PLATELET COUNT,PLT 241 K/mm3 (150-400); RED BLOOD CELL COUNT 4.59 M/mm3 (4.10-5.30); WHITE BLOOD CELL COUNT,WBC 8.34 K/mm3 (3.9-11.3)
[2024-02-28] MEDS: diphenhydrAMINE 50 MG/ML SDV IVPUSH PRN (20:35)
[2024-02-28] MEDS: Famotidine 20 MG/2 ML SDV IVPUSH SCH (20:35)
[2024-02-28] MEDS: Pantoprazole 40 MG Vial IVPUSH SCH (20:36)
[2024-02-28] MEDS: Misoprostol 200 MCG Tab PO SCH (20:36)
[2024-02-28] MEDS: Sodium Chloride 0.9% 1,000 ML IV SCH (20:36)
[2024-02-29] MEDS: SUMAtriptan 50 MG Tab PO PRN (03:19)
[2024-02-29 05:34] LABS: BASOPHILS PERCENT AUTO 0.4 % (0.0-1.0); EOSINOPHILS ABSOLUTE AUTO 0.2 K/mm3 (0.0-0.4); EOSINOPHILS PERCENT AUTO 2.9 % (0.0-6.0); HEMATOCRIT 37.9 % (37.0-47.0); HEMOGLOBIN 12.3 gm/dl (12.0-16.0); IMMATURE GRAN ABSOLUTE AUTO 0.03 K/mm3 (0.00-0.05); IMMATURE GRAN PERCENT AUTO 0.4 % (0.0-0.4); LYMPHOCYTES ABSOLUTE AUTO 2.2 K/mm3 (1.0-4.8); LYMPHOCYTES PERCENT AUTO 29.1 % (24.0-44.0); MEAN CORPUSCULAR HEMOGLOBIN 27.2 pg (28.0-32.0); MEAN CORPUSCULAR HGB CONC 32.5 g/dl (32.0-36.0); MEAN CORPUSCULAR VOLUME 83.8 fl (83.0-99.0); MONOCYTES ABSOLUTE AUTO 0.7 K/mm3 (0.0-0.8); MONOCYTES PERCENT AUTO 9.6 % (0.0-8.0); NEUTROPHILS ABSOLUTE AUTO 4.4 K/mm3 (1.8-7.7); NEUTROPHILS PERCENT AUTO 57.6 % (41.0-71.0); PLATELET COUNT,PLT 226 K/mm3 (150-400); RED BLOOD CELL COUNT 4.52 M/mm3 (4.10-5.30); WHITE BLOOD CELL COUNT,WBC 7.64 K/mm3 (3.9-11.3)
[2024-02-29] MEDS: traMADol 50 MG Tab PO PRN (09:37)
[2024-02-29] MEDS: Fish Oil/Omega-3 Fatty Acids 1 Gm Cap PO SCH (09:37)
[2024-02-29] MEDS: Heparin Sodium 5,000 Units/ML Vial SUBCUT SCH (09:38)
[2024-02-29] MEDS: LORazepam 2 MG/ML SDV IVPUSH PRN (09:38)
[2024-02-29] MEDS: Sucralfate 1 GM Tab PO SCH (11:55)
[2024-03-01 05:36] LABS: BASOPHILS PERCENT AUTO 0.4 % (0.0-1.0); EOSINOPHILS ABSOLUTE AUTO 0.3 K/mm3 (0.0-0.4); EOSINOPHILS PERCENT AUTO 3.1 % (0.0-6.0); HEMATOCRIT 36.7 % (37.0-47.0); IMMATURE GRAN ABSOLUTE AUTO 0.02 K/mm3 (0.00-0.05); IMMATURE GRAN PERCENT AUTO 0.2 % (0.0-0.4); LYMPHOCYTES ABSOLUTE AUTO 2.2 K/mm3 (1.0-4.8); LYMPHOCYTES PERCENT AUTO 26.7 % (24.0-44.0); MEAN CORPUSCULAR HEMOGLOBIN 27.5 pg (28.0-32.0); MEAN CORPUSCULAR HGB CONC 32.7 g/dl (32.0-36.0); MEAN PLATELET VOLUME 11.2 fl (9.4-12.3); MONOCYTES ABSOLUTE AUTO 0.8 K/mm3 (0.0-0.8); MONOCYTES PERCENT AUTO 9.1 % (0.0-8.0); NEUTROPHILS PERCENT AUTO 60.5 % (41.0-71.0); PLATELET COUNT,PLT 229 K/mm3 (150-400); RED BLOOD CELL COUNT 4.37 M/mm3 (4.10-5.30); WHITE BLOOD CELL COUNT,WBC 8.32 K/mm3 (3.9-11.3)
[2024-03-01 05:56] LABS: ANION GAP 11.7 (5-15); BUN/CREATININE RATIO 4.4 (14-18); CALCIUM 8.1 mg/dL (8.5-10.1); CREATININE 0.9 mg/dL (0.55-1.02); EST CRCL DRUG DOSING (CG) 84.03 mL/min; MAGNESIUM 1.6 mg/dL (1.8-2.4); PHOSPHORUS 3.3 mg/dL (2.6-4.7); POTASSIUM,K 3.7 mEq/L (3.5-5.1)
[2024-03-01] MEDS ORDERED: Lactated Ringers 1,000 ML IV ONE (07:00)
[2024-03-01] MEDS ORDERED: Propofol 200 MG/20 ML SDV ONE ×2 (07:12)
[2024-03-01] MEDS ORDERED: fentaNYL 100 MCG/2 ML SDV ONE (07:12)
[2024-03-01] MEDS ORDERED: Lidocaine 1% 4 ML ONE (07:13)
== END 2024-03-01 16:01 | disposition home or self-care (01) | DRG 247 ==
LOC: JD.ED 12:37 → JD.MS 16:03
PROVIDERS: ADMIT Family Medicine; ATTEND Family Medicine
PROC: 0DB78ZX Excision of Stomach, Pylorus, Via Natural or Artificial Opening Endoscopic, Diagnostic (ICD-10-PCS; 2024-03-01)
PROC: 0DB38ZX Excision of Lower Esophagus, Via Natural or Artificial Opening Endoscopic, Diagnostic (ICD-10-PCS; 2024-03-01)
PROC: 0DB98ZX Excision of Duodenum, Via Natural or Artificial Opening Endoscopic, Diagnostic (ICD-10-PCS; principal; 2024-03-01 07:30)
DX: K56.1 Intussusception (principal); K56.609 Unspecified intestinal obstruction, unspecified as to partial versus complete obstruction; K29.70 Gastritis, unspecified, without bleeding; K31.84 Gastroparesis; K21.9 Gastro-esophageal reflux disease without esophagitis; G43.909 Migraine, unspecified, not intractable, without status migrainosus; F17.210 Nicotine dependence, cigarettes, uncomplicated; H54.7 Unspecified visual loss; Z98.890 Other specified postprocedural states; Z91.018 Allergy to other foods; Z88.7 Allergy status to serum and vaccine; Z88.1 Allergy status to other antibiotic agents; Z79.899 Other long term (current) drug therapy; Z87.442 Personal history of urinary calculi; Z86.16 Personal history of COVID-19; Z90.89 Acquired absence of other organs; Z90.49 Acquired absence of other specified parts of digestive tract; Z90.710 Acquired absence of both cervix and uterus; Z90.722 Acquired absence of ovaries, bilateral; Z90.79 Acquired absence of other genital organ(s)
CPT/HCPCS: 36415; 74176; 74176-26; 74177; 74177-26; 80048; 80053; 81001; 83605; 83690; 83735; 83880; 84100; 85025; 94760; 94761; 96374; 99285; 99285-25; A9270-GY; J0612; J1170; J1200; J1644; J1885; J2060; J2405; J2470; J2704; J3010; J3490; J7030; J7120; Q9963; Q9967

== ENCOUNTER 2024-03-03 10:34 | Emergency (ER) | payer BC ==
[2024-03-03 11:19] LABS: BASOPHILS ABSOLUTE AUTO 0.1 K/mm3 (0.0-0.2); BASOPHILS PERCENT AUTO 0.6 % (0.0-1.0); EOSINOPHILS ABSOLUTE AUTO 0.2 K/mm3 (0.0-0.4); EOSINOPHILS PERCENT AUTO 2.6 % (0.0-6.0); HEMATOCRIT 43.2 % (37.0-47.0); IMMATURE GRAN ABSOLUTE AUTO 0.04 K/mm3 (0.00-0.05); IMMATURE GRAN PERCENT AUTO 0.4 % (0.0-0.4); LYMPHOCYTES ABSOLUTE AUTO 1.9 K/mm3 (1.0-4.8); LYMPHOCYTES PERCENT AUTO 21.7 % (24.0-44.0); MEAN CORPUSCULAR HEMOGLOBIN 27.3 pg (28.0-32.0); MEAN CORPUSCULAR HGB CONC 33.6 g/dl (32.0-36.0); MEAN CORPUSCULAR VOLUME 81.4 fl (83.0-99.0); MEAN PLATELET VOLUME 12.4 fl (9.4-12.3); MONOCYTES ABSOLUTE AUTO 0.7 K/mm3 (0.0-0.8); MONOCYTES PERCENT AUTO 7.8 % (0.0-8.0); NEUTROPHILS PERCENT AUTO 66.9 % (41.0-71.0); PLATELET COUNT,PLT 172 K/mm3 (150-400); RED BLOOD CELL COUNT 5.31 M/mm3 (4.10-5.30); WHITE BLOOD CELL COUNT,WBC 8.92 K/mm3 (3.9-11.3)
[2024-03-03] MEDS: Ondansetron 4 MG/2 ML SDV IVPUSH ONE (11:23)
[2024-03-03] MEDS: Sodium Chloride 0.9% 10 ML Syringe FLUSH PRN (11:23)
[2024-03-03] MEDS: Sodium Chloride 0.9% 1,000 ML IV STA (11:23)
[2024-03-03] MEDS: Alum Hydrox/Mag Hydrox/Simeth 30 ML, Lidocaine 2% 15 ML PO ONE (11:23)
[2024-03-03 11:26] LABS: ALBUMIN 4.4 g/dl (3.4-5.0); ANION GAP 16.5 (5-15); BILIRUBIN TOTAL 0.4 mg/dL (0.2-1.0); C-REACTIVE PROTEIN 0.69 mg/dL (<0.30); CALCIUM 9.3 mg/dL (8.5-10.1); EST CRCL DRUG DOSING (CG) 75.63 mL/min; POTASSIUM,K 3.5 mEq/L (3.5-5.1); PROTEIN TOTAL,TP 8.7 g/dl (6.4-8.2)
[2024-03-03 11:33] LABS: HEMOGLOBIN 14.5 gm/dl (12.0-16.0)
[2024-03-03 12:00] LABS: SLIDE REVIEW ABNORMAL SMEAR
[2024-03-03] MEDS: Iopamidol 755 Mg/ML 100 ML Bottle IVPUSH ONE (12:23)
[2024-03-03] MEDS: HYDROmorphone 0.5 MG/0.5 ML Syringe IVPUSH ONE (12:40)
[2024-03-03] MEDS: Sodium Chloride 0.9% 10 ML Syringe FLUSH ONE (12:40)
== END 2024-03-03 13:40 | disposition home or self-care (01) ==
LOC: JD.ED 10:34
DX: K29.00 Acute gastritis without bleeding (principal); Z90.49 Acquired absence of other specified parts of digestive tract; Z90.710 Acquired absence of both cervix and uterus; Z86.16 Personal history of COVID-19; Z79.899 Other long term (current) drug therapy; Z91.018 Allergy to other foods; Z88.7 Allergy status to serum and vaccine; Z88.1 Allergy status to other antibiotic agents
CPT/HCPCS: 36415; 74177; 80053; 83690; 84703; 85025; 86140; 96361; 96374; 96375; 99284; A9270; J1170; J2405; J3490; J7030; Q9967

== ENCOUNTER 2024-03-18 09:43 | Emergency (ER) | payer BC ==
[2024-03-18 10:42] LABS: BASOPHILS ABSOLUTE AUTO 0.1 K/mm3 (0.0-0.2); BASOPHILS PERCENT AUTO 0.5 % (0.0-1.0); EOSINOPHILS ABSOLUTE AUTO 0.2 K/mm3 (0.0-0.4); EOSINOPHILS PERCENT AUTO 1.9 % (0.0-6.0); HEMATOCRIT 41.8 % (37.0-47.0); IMMATURE GRAN ABSOLUTE AUTO 0.03 K/mm3 (0.00-0.05); IMMATURE GRAN PERCENT AUTO 0.3 % (0.0-0.4); LYMPHOCYTES PERCENT AUTO 17.7 % (24.0-44.0); MEAN CORPUSCULAR HEMOGLOBIN 27.8 pg (28.0-32.0); MEAN CORPUSCULAR HGB CONC 33.5 g/dl (32.0-36.0); MEAN CORPUSCULAR VOLUME 82.9 fl (83.0-99.0); MEAN PLATELET VOLUME 11.2 fl (9.4-12.3); MONOCYTES ABSOLUTE AUTO 0.8 K/mm3 (0.0-0.8); MONOCYTES PERCENT AUTO 7.2 % (0.0-8.0); NEUTROPHILS ABSOLUTE AUTO 8.1 K/mm3 (1.8-7.7); NEUTROPHILS PERCENT AUTO 72.4 % (41.0-71.0); RED BLOOD CELL COUNT 5.04 M/mm3 (4.10-5.30); WHITE BLOOD CELL COUNT,WBC 11.12 K/mm3 (3.9-11.3)
[2024-03-18 10:54] LABS: PLATELET COUNT,PLT 291 K/mm3 (150-400)
[2024-03-18] MEDS: Sodium Chloride 0.9% 1,000 ML IV ONE (10:54)
[2024-03-18] MEDS: Sodium Chloride 0.9% 10 ML Syringe FLUSH PRN ×2 (10:55→11:37)
[2024-03-18] MEDS: Morphine 4 MG/ML Syringe IVPUSH ONE (10:55)
[2024-03-18 11:04] LABS: A/G RATIO 0.9 (1-2); ALBUMIN 3.8 g/dl (3.4-5.0); ANION GAP 15.9 (5-15); BILIRUBIN TOTAL 0.5 mg/dL (0.2-1.0); BUN/CREATININE RATIO 13.3 (14-18); CALCIUM 9.2 mg/dL (8.5-10.1); CREATININE 0.9 mg/dL (0.55-1.02); EST CRCL DRUG DOSING (CG) 84.03 mL/min; POTASSIUM,K 3.9 mEq/L (3.5-5.1)
[2024-03-18] MEDS: Ondansetron 4 MG/2 ML SDV IVPUSH ONE (11:29)
[2024-03-18] MEDS: Ondansetron 4 MG/2 ML SDV ONE (11:29)
[2024-03-18] MEDS: Iopamidol 755 Mg/ML 100 ML Bottle IVPUSH ONE (11:37)
[2024-03-18 11:51] LABS: APPEARANCE,URINE CLEAR (Clear); BILIRUBIN,URINE NEGATIVE (Negative); COLOR,URINE YELLOW (Yellow); GLUCOSE,URINE NEGATIVE (Negative); KETONES,URINE NEGATIVE (Negative); LEUKOCYTE ESTERASE,URINE NEGATIVE (Negative); NITRITE,URINE NEGATIVE (Negative); OCCULT BLOOD,URINE TRACE-INTACT (Negative); PROTEIN,URINE NEGATIVE (Negative); UROBILINOGEN,URINE 0.2 (0.2-1.0)
[2024-03-18 12:23] LABS: BACTERIA,URINE RARE /hpf (FEW); EPITHELIAL CELLS,URINE 0-5 /hpf (0-5); MUCUS,URINE RARE /hpf (FEW); RBC,URINE 0-5 /hpf (0-5); WBC,URINE 0-5 /hpf (0-5)
== END 2024-03-18 13:00 | disposition home or self-care (01) ==
LOC: JD.ED 09:43
DX: R10.31 Right lower quadrant pain (principal); R30.0 Dysuria; R11.2 Nausea with vomiting, unspecified; K21.9 Gastro-esophageal reflux disease without esophagitis; Z86.16 Personal history of COVID-19; Z90.49 Acquired absence of other specified parts of digestive tract; Z90.710 Acquired absence of both cervix and uterus; Z79.899 Other long term (current) drug therapy; Z88.1 Allergy status to other antibiotic agents; Z88.7 Allergy status to serum and vaccine; Z91.018 Allergy to other foods
CPT/HCPCS: 36415; 74177; 80053; 81001; 83690; 84703; 85025; 96361; 96374; 96375; 99284; J2270; J2405; J3490; J7030; Q9967; 99283

== ENCOUNTER 2024-04-14 13:24 | Emergency (ER) | payer BC ==
[2024-04-14 14:19] LABS: BASOPHILS ABSOLUTE AUTO 0.1 K/mm3 (0.0-0.2); BASOPHILS PERCENT AUTO 0.5 % (0.0-1.0); EOSINOPHILS ABSOLUTE AUTO 0.3 K/mm3 (0.0-0.4); EOSINOPHILS PERCENT AUTO 2.5 % (0.0-6.0); HEMATOCRIT 43.4 % (37.0-47.0); HEMOGLOBIN 14.5 gm/dl (12.0-16.0); IMMATURE GRAN ABSOLUTE AUTO 0.03 K/mm3 (0.00-0.05); IMMATURE GRAN PERCENT AUTO 0.3 % (0.0-0.4); LYMPHOCYTES ABSOLUTE AUTO 2.5 K/mm3 (1.0-4.8); LYMPHOCYTES PERCENT AUTO 23.2 % (24.0-44.0); MEAN CORPUSCULAR HEMOGLOBIN 27.8 pg (28.0-32.0); MEAN CORPUSCULAR HGB CONC 33.4 g/dl (32.0-36.0); MEAN CORPUSCULAR VOLUME 83.1 fl (83.0-99.0); MEAN PLATELET VOLUME 11.1 fl (9.4-12.3); MONOCYTES ABSOLUTE AUTO 0.9 K/mm3 (0.0-0.8); MONOCYTES PERCENT AUTO 8.6 % (0.0-8.0); NEUTROPHILS ABSOLUTE AUTO 6.9 K/mm3 (1.8-7.7); NEUTROPHILS PERCENT AUTO 64.9 % (41.0-71.0); PLATELET COUNT,PLT 304 K/mm3 (150-400); RED BLOOD CELL COUNT 5.22 M/mm3 (4.10-5.30); WHITE BLOOD CELL COUNT,WBC 10.58 K/mm3 (3.9-11.3)
[2024-04-14] MEDS ORDERED: Naloxone 0.4 MG/ML SDV IVPUSH PRN (14:24)
[2024-04-14 14:42] LABS: ALBUMIN 3.8 g/dl (3.4-5.0); ANION GAP 13.7 (5-15); BILIRUBIN TOTAL 0.3 mg/dL (0.2-1.0); BUN/CREATININE RATIO 11.1 (14-18); CALCIUM 9.3 mg/dL (8.5-10.1); CREATININE 0.9 mg/dL (0.55-1.02); EST CRCL DRUG DOSING (CG) 84.03 mL/min; POTASSIUM,K 3.7 mEq/L (3.5-5.1); PROTEIN TOTAL,TP 7.8 g/dl (6.4-8.2)
[2024-04-14] MEDS: fentaNYL 100 MCG/2 ML SDV IVPUSH ONE (14:45)
[2024-04-14] MEDS: Sodium Chloride 0.9% 1,000 ML IV SCH (14:45)
[2024-04-14] MEDS: Ondansetron 4 MG/2 ML SDV IVPUSH ONE (14:45)
[2024-04-14] MEDS: Sodium Chloride 0.9% 10 ML Syringe FLUSH PRN (14:46)
[2024-04-14] MEDS: Sodium Chloride 0.9% 10 ML Syringe FLUSH ONE (14:52)
[2024-04-14] MEDS: Iopamidol 612 MG/ML 100 ML Bottle IVPUSH ONE ×2 (15:11→15:12)
[2024-04-14] MEDS: Alum Hydrox/Mag Hydrox/Simeth 30 ML, Lidocaine 2% 15 ML PO ONE (15:55)
[2024-04-14] MEDS: Pantoprazole 40 MG Vial IVPUSH ONE (15:55)
== END 2024-04-14 17:00 | disposition home or self-care (01) ==
LOC: JD.ED 13:24
DX: K56.609 Unspecified intestinal obstruction, unspecified as to partial versus complete obstruction (principal); K21.9 Gastro-esophageal reflux disease without esophagitis; Z88.7 Allergy status to serum and vaccine; Z91.018 Allergy to other foods; Z88.8 Allergy status to other drugs, medicaments and biological substances; Z79.899 Other long term (current) drug therapy; Z86.16 Personal history of COVID-19; Z90.49 Acquired absence of other specified parts of digestive tract; Z90.710 Acquired absence of both cervix and uterus
CPT/HCPCS: 36415; 74177; 80053; 83605; 83690; 85025; 96361; 96374; 96375; 99284; A9270; J2405; J2470; J3010; J3490; J7030; Q9967

== ENCOUNTER 2024-07-08 12:57 | Emergency (ER) | payer BC ==
[2024-07-08] MEDS: Ondansetron 4 MG/2 ML SDV IVPUSH ONE (14:02)
[2024-07-08] MEDS: Sodium Chloride 0.9% 1,000 ML IV STA (14:03)
[2024-07-08] MEDS: HYDROmorphone 0.5 MG/0.5 ML Syringe IVPUSH ONE ×2 (14:03→15:16)
[2024-07-08] MEDS: Sodium Chloride 0.9% 10 ML Syringe FLUSH PRN (14:04)
[2024-07-08 14:10] LABS: BASOPHILS ABSOLUTE AUTO 0.1 K/mm3 (0.0-0.2); BASOPHILS PERCENT AUTO 0.4 % (0.0-1.0); EOSINOPHILS ABSOLUTE AUTO 0.1 K/mm3 (0.0-0.4); EOSINOPHILS PERCENT AUTO 0.8 % (0.0-6.0); HEMATOCRIT 48.1 % (37.0-47.0); IMMATURE GRAN ABSOLUTE AUTO 0.04 K/mm3 (0.00-0.05); IMMATURE GRAN PERCENT AUTO 0.3 % (0.0-0.4); LYMPHOCYTES ABSOLUTE AUTO 2.1 K/mm3 (1.0-4.8); LYMPHOCYTES PERCENT AUTO 17.3 % (24.0-44.0); MEAN CORPUSCULAR HEMOGLOBIN 27.1 pg (28.0-32.0); MEAN CORPUSCULAR HGB CONC 33.5 g/dl (32.0-36.0); MEAN PLATELET VOLUME 11.8 fl (9.4-12.3); MONOCYTES ABSOLUTE AUTO 0.7 K/mm3 (0.0-0.8); MONOCYTES PERCENT AUTO 5.7 % (0.0-8.0); NEUTROPHILS ABSOLUTE AUTO 9.1 K/mm3 (1.8-7.7); NEUTROPHILS PERCENT AUTO 75.5 % (41.0-71.0); PLATELET COUNT,PLT 279 K/mm3 (150-400); RED BLOOD CELL COUNT 5.94 M/mm3 (4.10-5.30); WHITE BLOOD CELL COUNT,WBC 12.03 K/mm3 (3.9-11.3)
[2024-07-08] MEDS: Sodium Chloride 0.9% 10 ML Syringe FLUSH ONE (14:13)
[2024-07-08] MEDS: Iopamidol 612 MG/ML 100 ML Bottle IVPUSH ONE (14:14)
[2024-07-08 14:32] LABS: HEMOGLOBIN 16.1 gm/dl (12.0-16.0)
[2024-07-08 14:35] LABS: ALBUMIN 4.5 g/dl (3.4-5.0); ANION GAP 17.1 (5-15); BILIRUBIN TOTAL 0.3 mg/dL (0.2-1.0); BUN/CREATININE RATIO 8.9 (14-18); CALCIUM 9.8 mg/dL (8.5-10.1); CREATININE 0.9 mg/dL (0.55-1.02); EST CRCL DRUG DOSING (CG) 83.23 mL/min; POTASSIUM,K 4.1 mEq/L (3.5-5.1); PROTEIN TOTAL,TP 8.9 g/dl (6.4-8.2)
[2024-07-08] MEDS: Alum Hydrox/Mag Hydrox/Simeth 30 ML, Lidocaine 2% 15 ML PO ONE (16:15)
[2024-07-08] MEDS: Pantoprazole 40 MG Vial IVPUSH ONE (16:15)
[2024-07-08 16:37] LABS: APPEARANCE,URINE CLEAR (Clear); BILIRUBIN,URINE NEGATIVE (Negative); COLOR,URINE YELLOW (Yellow); GLUCOSE,URINE NEGATIVE (Negative); KETONES,URINE TRACE (Negative); LEUKOCYTE ESTERASE,URINE NEGATIVE (Negative); NITRITE,URINE NEGATIVE (Negative); OCCULT BLOOD,URINE TRACE-INTACT (Negative); PH,URINE 5.5 (5.0-8.0); PROTEIN,URINE NEGATIVE (Negative); UROBILINOGEN,URINE 0.2 (0.2-1.0)
[2024-07-08 16:45] LABS: BACTERIA,URINE FEW /hpf (FEW); MUCUS,URINE FEW /hpf (FEW); RBC,URINE 0-5 /hpf (0-5); SQUAMOUS EPITHELIAL CELLS,UR 0-5 /hpf (0-5); WBC,URINE 0-5 /hpf (0-5)
[2024-07-08] MEDS: fentaNYL 100 MCG/2 ML SDV IVPUSH ONE (17:01)
== END 2024-07-08 17:37 | disposition home or self-care (01) ==
LOC: JD.ED 12:57
DX: R10.10 Upper abdominal pain, unspecified (principal); R11.2 Nausea with vomiting, unspecified; Z90.49 Acquired absence of other specified parts of digestive tract; Z90.710 Acquired absence of both cervix and uterus; Z91.018 Allergy to other foods; Z88.7 Allergy status to serum and vaccine; Z88.1 Allergy status to other antibiotic agents
CPT/HCPCS: 36415; 74177; 80053; 81001; 83605; 83690; 85025; 96361; 96374; 96375; 96376; 99284; A9270; J1171; J2405; J2470; J3010; J3490; J7030; Q9967

== ENCOUNTER 2024-08-12 23:54 | Emergency (ER) | payer BC ==
[2024-08-13 00:34] LABS: APPEARANCE,URINE CLEAR (Clear); BILIRUBIN,URINE NEGATIVE (Negative); COLOR,URINE YELLOW (Yellow); GLUCOSE,URINE NEGATIVE (Negative); KETONES,URINE NEGATIVE (Negative); LEUKOCYTE ESTERASE,URINE NEGATIVE (Negative); NITRITE,URINE NEGATIVE (Negative); OCCULT BLOOD,URINE TRACE-LYSED (Negative); PROTEIN,URINE NEGATIVE (Negative); UROBILINOGEN,URINE 0.2 (0.2-1.0)
[2024-08-13] MEDS: Sodium Chloride 0.9% 1,000 ML IV ONE (00:37)
[2024-08-13] MEDS: HYDROmorphone 1 MG/ML Syringe IVPUSH ONE (00:37)
[2024-08-13] MEDS: Sodium Chloride 0.9% 10 ML Syringe FLUSH PRN (00:48)
[2024-08-13 00:49] LABS: A/G RATIO 0.9 (1-2); ALBUMIN 3.5 g/dl (3.4-5.0); ANION GAP 13.9 (5-15); BILIRUBIN TOTAL 0.2 mg/dL (0.2-1.0); BUN/CREATININE RATIO 18.6 (14-18); CALCIUM 8.9 mg/dL (8.5-10.1); CREATININE 0.7 mg/dL (0.55-1.02); MAGNESIUM 1.8 mg/dL (1.8-2.4); PROTEIN TOTAL,TP 7.3 g/dl (6.4-8.2)
[2024-08-13] MEDS: Iopamidol 612 MG/ML 100 ML Bottle IVPUSH ONE (00:53)
[2024-08-13 00:57] LABS: POTASSIUM,K 3.9 mEq/L (3.5-5.1)
[2024-08-13] MEDS: Ondansetron 4 MG/2 ML SDV IVPUSH ONE (00:58)
[2024-08-13 01:00] LABS: BASOPHILS ABSOLUTE AUTO 0.1 K/mm3 (0.0-0.2); BASOPHILS PERCENT AUTO 0.6 % (0.0-1.0); EOSINOPHILS ABSOLUTE AUTO 0.4 K/mm3 (0.0-0.4); EOSINOPHILS PERCENT AUTO 3.3 % (0.0-6.0); HEMATOCRIT 40.1 % (37.0-47.0); HEMOGLOBIN 13.6 gm/dl (12.0-16.0); IMMATURE GRAN ABSOLUTE AUTO 0.04 K/mm3 (0.00-0.05); IMMATURE GRAN PERCENT AUTO 0.3 % (0.0-0.4); LYMPHOCYTES ABSOLUTE AUTO 2.8 K/mm3 (1.0-4.8); LYMPHOCYTES PERCENT AUTO 23.3 % (24.0-44.0); MEAN CORPUSCULAR HEMOGLOBIN 27.5 pg (28.0-32.0); MEAN CORPUSCULAR HGB CONC 33.9 g/dl (32.0-36.0); MEAN CORPUSCULAR VOLUME 81.2 fl (83.0-99.0); MONOCYTES PERCENT AUTO 8.2 % (0.0-8.0); NEUTROPHILS ABSOLUTE AUTO 7.7 K/mm3 (1.8-7.7); NEUTROPHILS PERCENT AUTO 64.3 % (41.0-71.0); PLATELET COUNT,PLT 263 K/mm3 (150-400); RED BLOOD CELL COUNT 4.94 M/mm3 (4.10-5.30); WHITE BLOOD CELL COUNT,WBC 11.92 K/mm3 (3.9-11.3)
[2024-08-13 01:51] LABS: BACTERIA,URINE MODERATE /hpf (FEW); MUCUS,URINE FEW /hpf (FEW); RBC,URINE 0-5 /hpf (0-5); WBC,URINE 0-5 /hpf (0-5)
[2024-08-13 01:52] LABS: AMORPHOUS SEDIMENT,URINE FEW /hpf (NOT SEEN)
[2024-08-13] MEDS: HYDROmorphone 0.5 MG/0.5 ML Syringe IVPUSH ONE (02:33)
== END 2024-08-13 02:48 | disposition home or self-care (01) ==
LOC: JD.ED 23:54
DX: R10.13 Epigastric pain (principal); Z86.16 Personal history of COVID-19; Z90.49 Acquired absence of other specified parts of digestive tract; Z90.710 Acquired absence of both cervix and uterus; Z88.7 Allergy status to serum and vaccine; Z88.8 Allergy status to other drugs, medicaments and biological substances; Z91.018 Allergy to other foods; Z79.899 Other long term (current) drug therapy
CPT/HCPCS: 36415; 74177; 74177-26; 80053; 81001; 83690; 83735; 84703; 85025; 93005; 96361; 96374; 96375; 96376; 99285-25; J1171; J2405; J7030; Q9967

== ENCOUNTER 2024-11-08 14:07 | Emergency (ER) | payer BC, MEDICAID ==
[2024-11-08 15:05] LABS: BASOPHILS PERCENT AUTO 0.4 % (0.0-1.0); EOSINOPHILS ABSOLUTE AUTO 0.2 K/mm3 (0.0-0.4); EOSINOPHILS PERCENT AUTO 1.5 % (0.0-6.0); HEMATOCRIT 44.1 % (37.0-47.0); HEMOGLOBIN 14.6 gm/dl (12.0-16.0); IMMATURE GRAN ABSOLUTE AUTO 0.05 K/mm3 (0.00-0.05); IMMATURE GRAN PERCENT AUTO 0.4 % (0.0-0.4); LYMPHOCYTES ABSOLUTE AUTO 1.9 K/mm3 (1.0-4.8); LYMPHOCYTES PERCENT AUTO 16.8 % (24.0-44.0); MEAN CORPUSCULAR HEMOGLOBIN 27.6 pg (28.0-32.0); MEAN CORPUSCULAR HGB CONC 33.1 g/dl (32.0-36.0); MEAN CORPUSCULAR VOLUME 83.4 fl (83.0-99.0); MONOCYTES ABSOLUTE AUTO 0.8 K/mm3 (0.0-0.8); NEUTROPHILS ABSOLUTE AUTO 8.4 K/mm3 (1.8-7.7); NEUTROPHILS PERCENT AUTO 73.9 % (41.0-71.0); PLATELET COUNT,PLT 291 K/mm3 (150-400); RED BLOOD CELL COUNT 5.29 M/mm3 (4.10-5.30); WHITE BLOOD CELL COUNT,WBC 11.38 K/mm3 (3.9-11.3)
[2024-11-08] MEDS: Metoclopramide 10 MG/2 ML SDV IVPUSH ONE (15:06)
[2024-11-08] MEDS: Sodium Chloride 0.9% 1,000 ML IV STA ×2 (15:06→16:45)
[2024-11-08] MEDS: Ketorolac 30 MG/ML SDV IVPUSH ONE (15:07)
[2024-11-08] MEDS: HYDROmorphone 0.5 MG/0.5 ML Syringe IVPUSH ONE (15:08)
[2024-11-08] MEDS: Sodium Chloride 0.9% 10 ML Syringe FLUSH PRN (15:12)
[2024-11-08 15:14] LABS: ALBUMIN 3.8 g/dl (3.4-5.0); ANION GAP 19.7 (5-15); BILIRUBIN TOTAL 0.4 mg/dL (0.2-1.0); C-REACTIVE PROTEIN 0.24 mg/dL (<0.30); CALCIUM 9.1 mg/dL (8.5-10.1); CREATININE 0.8 mg/dL (0.55-1.02); EST CRCL DRUG DOSING (CG) 93.63 mL/min; POTASSIUM,K 3.7 mEq/L (3.5-5.1); PROTEIN TOTAL,TP 7.8 g/dl (6.4-8.2)
[2024-11-08] MEDS: Pantoprazole 40 MG Vial IVPUSH ONE (15:19)
[2024-11-08] MEDS: Famotidine 20 MG/2 ML SDV IVPUSH ONE (15:22)
[2024-11-08 15:34] LABS: APPEARANCE,URINE CLEAR (Clear); BILIRUBIN,URINE NEGATIVE (Negative); COLOR,URINE YELLOW (Yellow); GLUCOSE,URINE NEGATIVE (Negative); KETONES,URINE NEGATIVE (Negative); LEUKOCYTE ESTERASE,URINE NEGATIVE (Negative); NITRITE,URINE NEGATIVE (Negative); OCCULT BLOOD,URINE TRACE-LYSED (Negative); PROTEIN,URINE NEGATIVE (Negative); UROBILINOGEN,URINE 0.2 (0.2-1.0)
[2024-11-08 15:46] LABS: BACTERIA,URINE OCCASIONAL /hpf (FEW); MUCUS,URINE NOT SEEN /hpf (FEW); RBC,URINE 0-5 /hpf (0-5); SQUAMOUS EPITHELIAL CELLS,UR 0-5 /hpf (0-5); WBC,URINE 0-5 /hpf (0-5)
[2024-11-08] MEDS: Alum Hydrox/Mag Hydrox/Simeth 30 ML, Lidocaine 2% 15 ML PO ONE (16:45)
[2024-11-08] MEDS: Ondansetron 4 MG/2 ML SDV IVPUSH ONE (16:45)
[2024-11-08] MEDS: Sucralfate Suspension 1 GM/10 ML Cup PO ONE (18:14)
[2024-11-08] MEDS: Acetaminophen/HYDROcodone 325-5 MG Tab PO ONE (18:14)
== END 2024-11-08 18:24 | disposition home or self-care (01) ==
LOC: JD.ED 14:07
DX: R10.13 Epigastric pain (principal); K21.9 Gastro-esophageal reflux disease without esophagitis; F17.210 Nicotine dependence, cigarettes, uncomplicated; Z91.018 Allergy to other foods; Z88.8 Allergy status to other drugs, medicaments and biological substances; Z88.7 Allergy status to serum and vaccine; Z79.899 Other long term (current) drug therapy; Z86.16 Personal history of COVID-19
CPT/HCPCS: 36415; 80053; 81001; 83690; 84703; 85025; 86140; 96361; 96374; 96375; 99284; A9270; J1885; J2405; J2470; J2765; J7030

== ENCOUNTER 2025-06-14 19:21 | Emergency (ER) | payer MEDICAID ==
[2025-06-14] MEDS ORDERED: Sodium Chloride 0.9% 10 ML Syringe FLUSH PRN (19:49)
[2025-06-14 20:04] LABS: BASOPHILS ABSOLUTE AUTO 0.1 K/mm3 (0.0-0.2); BASOPHILS PERCENT AUTO 0.5 % (0.0-1.0); EOSINOPHILS ABSOLUTE AUTO 0.1 K/mm3 (0.0-0.4); EOSINOPHILS PERCENT AUTO 1.2 % (0.0-6.0); IMMATURE GRAN ABSOLUTE AUTO 0.03 K/mm3 (0.00-0.05); IMMATURE GRAN PERCENT AUTO 0.3 % (0.0-0.4); LYMPHOCYTES ABSOLUTE AUTO 2.7 K/mm3 (1.0-4.8); LYMPHOCYTES PERCENT AUTO 25.2 % (24.0-44.0); MEAN PLATELET VOLUME 11.4 fl (9.4-12.3); MONOCYTES ABSOLUTE AUTO 0.9 K/mm3 (0.0-0.8); MONOCYTES PERCENT AUTO 8.9 % (0.0-8.0); NEUTROPHILS ABSOLUTE AUTO 6.8 K/mm3 (1.8-7.7); NEUTROPHILS PERCENT AUTO 63.9 % (41.0-71.0); NRBC ABSOLUTE 0.00 (0.00-0.02); NRBC PERCENT 0.0 % (0.0-0.2); PLATELET COUNT,PLT 275 K/mm3 (150-400); RED BLOOD CELL COUNT 5.01 M/mm3 (4.10-5.30); WHITE BLOOD CELL COUNT,WBC 10.61 K/mm3 (3.9-11.3)
[2025-06-14] MEDS ORDERED: Naloxone 0.4 MG/ML SDV IVPUSH PRN ×2 (20:15→21:11)
[2025-06-14 20:19] LABS: A/G RATIO 1.2 (1-2); ALANINE AMINOTRANSFERASE,ALT 30.0 U/L (14-59); ASPARTATE AMNIOTRANSFERASE,AST 21.0 U/L (15-37); BILIRUBIN TOTAL 0.5 mg/dL (0.2-1.0); BLOOD UREA NITROGEN,BUN 13.0 mg/dL (7-18); CARBON DIOXIDE,CO2 27.0 mEq/L (21-32); CHLORIDE,CL 102.0 mEq/L (98-107); CREATININE 0.8 mg/dL (0.55-1.02); EST CRCL DRUG DOSING (CG) 106.57 mL/min; ESTIMATED GFR 97.0 mL/min (>60); GLUCOSE RANDOM 84.0 mg/dL (70-99); POTASSIUM,K 3.3 mEq/L (3.5-5.1); PROTEIN TOTAL,TP 7.6 g/dl (6.4-8.2); SODIUM,NA 138.0 mEq/L (136-145)
[2025-06-14 20:23] LABS: LACTIC ACID 1.0 mmol/L (0.4-2.0)
[2025-06-14] MEDS: Ondansetron 4 MG/2 ML SDV IVPUSH ONE (20:27)
[2025-06-14 20:43] LABS: APPEARANCE,URINE CLEAR (Clear); GLUCOSE,URINE NEGATIVE (Negative); OCCULT BLOOD,URINE TRACE-LYSED (Negative)
[2025-06-14 21:22] LABS: EPITHELIAL CELLS,URINE 0-5 /hpf (0-5)
[2025-06-14] MEDS: Iopamidol 612 MG/ML 100 ML Bottle IVPUSH ONE (21:23)
[2025-06-15 00:45] LABS: BASOPHILS ABSOLUTE AUTO 0.0 K/mm3 (0.0-0.2); BASOPHILS PERCENT AUTO 0.3 % (0.0-1.0); EOSINOPHILS ABSOLUTE AUTO 0.1 K/mm3 (0.0-0.4); EOSINOPHILS PERCENT AUTO 1.3 % (0.0-6.0); IMMATURE GRAN ABSOLUTE AUTO 0.03 K/mm3 (0.00-0.05); IMMATURE GRAN PERCENT AUTO 0.3 % (0.0-0.4); LYMPHOCYTES ABSOLUTE AUTO 2.6 K/mm3 (1.0-4.8); LYMPHOCYTES PERCENT AUTO 26.4 % (24.0-44.0); MEAN PLATELET VOLUME 11.0 fl (9.4-12.3); MONOCYTES ABSOLUTE AUTO 1.0 K/mm3 (0.0-0.8); MONOCYTES PERCENT AUTO 9.8 % (0.0-8.0); NEUTROPHILS ABSOLUTE AUTO 6.1 K/mm3 (1.8-7.7); NEUTROPHILS PERCENT AUTO 61.9 % (41.0-71.0); NRBC ABSOLUTE 0.00 (0.00-0.02); NRBC PERCENT 0.0 % (0.0-0.2); PLATELET COUNT,PLT 245 K/mm3 (150-400); RED BLOOD CELL COUNT 4.74 M/mm3 (4.10-5.30); WHITE BLOOD CELL COUNT,WBC 9.79 K/mm3 (3.9-11.3)
== END 2025-06-15 01:45 | disposition home or self-care (01) ==
LOC: JD.ED 19:21
DX: N83.201 Unspecified ovarian cyst, right side (principal); K21.9 Gastro-esophageal reflux disease without esophagitis; Z86.16 Personal history of COVID-19; Z90.49 Acquired absence of other specified parts of digestive tract; Z90.710 Acquired absence of both cervix and uterus; Z88.7 Allergy status to serum and vaccine; Z88.8 Allergy status to other drugs, medicaments and biological substances; Z91.018 Allergy to other foods; Z79.899 Other long term (current) drug therapy
CPT/HCPCS: 36415; 74177; 76857; 80053; 81001; 83605; 85025; 86850; 86900; 86901; 96374; 96375; 96376; 99284; J2270; J2405; J7030; Q9967; J1171